=== PATIENT | female | born 1950 | race Caucasian/White ===

== ENCOUNTER 2024-01-13 09:03 | Outpatient (OUT) | payer MEDICARE, SELFPAY ==
[2024-01-13 10:22] LABS: Basophils Absolute Auto 0.1 10^3/uL (0.0-0.1); Eosinophils Absolute Auto 0.1 10^3/uL (0.0-0.7); Eosinophils Percent Auto 1.8 % (0.9-7.0); Hematocrit 41.9 % (36.0-48.0); Hemoglobin 13.5 g/dL (12.0-16.0); Immature Granulocytes Abs Auto 0.02 10^3/uL (0.00-0.03); Immature Granulocytes Pct Auto 0.3 % (0.0-0.5); Lymphocytes Absolute Auto 1.9 10^3/uL (1.2-3.8); Lymphocytes Percent Auto 24.5 % (20.5-60.0); Mean Corpuscular HGB Conc 32.2 g/dL (29.9-35.2); Mean Corpuscular Hemoglobin 30.5 pg (26.7-34.0); Mean Corpuscular Volume 94.6 fL (81.0-99.0); Mean Platelet Volume 12.2 fL (9.5-13.5); Monocytes Absolute Auto 0.7 10^3/uL (0.3-0.8); Monocytes Percent Auto 8.5 % (1.7-12.0); Neutrophils Percent Auto 63.9 % (43.0-75.0); Platelet Count 127 10^3/uL (150-450); Red Blood Count 4.43 10^6/uL (4.20-5.40); Red Cell Distribution Width 13.8 % (11.0-15.0); White Blood Count 7.8 10^3/uL (4.0-11.0)
[2024-01-13 10:56] LABS: Alanine Aminotransferase 19 U/L (14-59); Albumin Globulin Ratio 1.3; Alkaline Phosphatase 89 U/L (46-116); Anion Gap 8.9; Aspartate Amino Transferase 12 U/L (15-37); BUN Creatinine Ratio 26.9; Bilirubin Direct 0.1 mg/dL (0.0-0.2); Bilirubin Total 0.6 mg/dL (0.2-1.0); Calcium 9.7 mg/dL (8.5-10.1); Carbon Dioxide 30.8 mmol/L (21.0-32.0); Chloride 104 mmol/L (98-107); Cholesterol 139 mg/dL (<=200); Estimated GFR (African America >60 (>=60); Estimated GFR (Non-African Ame 52 (>=60); Globulin 3.1 g/dL; Glucose 111 mg/dL (74-106); HDL Cholesterol 47 mg/dL (40-60); LDL Cholesterol Calculated 67.6 mg/dL; Potassium 4.7 mmol/L (3.5-5.1); Sodium 139 mmol/L (136-145); Total Protein 7.1 g/dL (6.4-8.2); Triglycerides 122 mg/dL (<=150); VLDL CHOLESTEROL 24.4 mg/dL
== END 2024-01-13 09:04 | disposition home or self-care (01) ==
LOC: LAB 09:10
PROVIDERS: PCP Family Medicine; Visit Provider Family Medicine
DX: E78.2 Mixed hyperlipidemia (principal); Z79.899 Other long term (current) drug therapy; E55.9 Vitamin D deficiency, unspecified
CPT/HCPCS: 36415; 80048; 80061; 80076; 82306; 85025

== ENCOUNTER 2024-01-14 09:50 | Outpatient (OUT) | payer MEDICARE, SELFPAY ==
--- OUTSIDE RECORDS SUMMARY | 2024-01-14 10:09 | XMS_ITS | CCD ---
Author Organization [facility] Care Team Providers Care Blending Line Attendant Name Role Phone PHYSICIAN, DEFAULT Unavailable Unavailable PHYSICIAN, DEFAULT Unavailable Unavailable SIL BAIG Unavailable Unavailable JESICA QUACH Attending Unavailable JESICA QUACH Consulting Unavailable JESICA QUACH Admitting Unavailable NADERER, DR GABY Paiz Primary Care Unavailable MOUKAGLORIA, DR PASTOR Attending Unavailable MOUKARBEL, DR PASTOR Admitting Unavailable ZIEBER, DR ERIC Gautam Consulting Unavailable NADERER, DR GABY Paiz Primary Care Unavailable MOUKARBEL, DR PASTOR Consulting Unavailable MAINJESICA APARICIO Consulting Unavailable JESICA QUACH Admitting Unavailable REQUEST, DR NONE LISTED Primary Care Unavaila ble JESICA QUACH Attending Unavailable ELLIOT, JAMAR Attending Unavailable MOUKAGLORIA, DARBY Attending Unavailable Allergies Allergy Classification Reported Allergen(s) Allergy Type Date of Onset Reaction(s) Facility (2 sources) Shellfish Containing Products; Translations: [SHELLFISH CONTAINING PRODUCTS] Drug allergy (disorder) 03-25-2013 [facility] Repository Problems Active Problems Problem Classification Problem Date Documented Date Episodic/Chronic Coronary atherosclerosis and other heart disease (7 sources) Atherosclerotic heart disease of [place] coronary artery without angina pectoris; Translations: [Atherosclerotic heart disease of [place] coronary artery with other forms of angina pectoris] Onset: 03-10-2022 Chronic Coronary atherosclerosis and other heart disease (4 sources) Presence of coronary angioplasty implant and graft; Translations: [Presence of aortocoronary bypass graft] Onset: 07-31-2023 Episodic Disorders of lipid metabolism (5 sources) Mixed hyperlipidemia; Translations: [Hyperlipidemia, unspecified] Onset: 07-16-2022 Chronic Essential hypertension (6 sources) Essential (primary) hypertension; Translations: [ESSENTIAL PRIMARY HYPERTENSION] Onset: 02-17-2022 Chronic Peripheral and visceral atherosclerosis (2 sources) Peripheral vascular disease, unspecified; Translations: [Peripheral vascular disease, unspecified] Onset: 07-22-2022 Chronic Past or Other Problems Problem Classification Problem Date Documented Da te Episodic/Chronic Nonspecific chest pain (2 sources) Chest pain, unspecified; Translations: [Chest pain, unspecified] Onset: 07-16-2022 Episodic Results Test Name Value Interpretation Reference Range Facility Office Visiton 07-31-2023 Follow-up visit [id number] RiddleDanica jalloh 1950 F Date Provider Department Center 07/31/2023 DARBY POWER [facility] Family History Problem Relation Age of Onset Coronary artery disease Mother Diabetes Father Family Status - Relation Status Age at Mother Father Level of Service:71776 UT OFFICE/OUTPATIENT ESTABLISHED LOW MDM 20-29 MIN Normal [facility] Office Visiton 01-21-2023 Follow-up visit [id number] RiddleDanica jalloh 1950 F Date Provider Department Center 01/21/2023 JAMAR CHAUDHRY [facility] Family History Problem Relation Age of Onset Coronary artery disease Mother Diabetes Father Family Status - Relation Status Age at Mother Father Level of Service:14235 UT OFFICE/OUTPATIENT ESTABLISHED MOD MDM 30-39 MIN Normal [facility] CBC AUTO DIFFon 07-23-2022 BASO # 0.1 103/ul Normal 0.0-0.1 [facility] Comment on above: Performed By: #### C BC #### [facility] [address] [place] [address] Dr. Geeta Ferrer Basophils/100 WBC (Bld) 1.0 % Normal 0.2-2.0 [facility] Comment on above: Performed By: #### C BC #### [facility] [address] [address] [address] Geeta Ferrer EO # 0.2 103/ul Normal 0.0-0.7 [facility] Comment on above: Performed By: #### C BC #### [facility] [address] [place] [address] Dr. Geeta Ferrer Eosinophils/100 WBC (Bld) 2.2 % Normal 0.9-7.0 [facility] Comment on above: Performed By: #### C BC #### [facility] [address] [place] [address] Dr. Geeta Ferrer Erythrocyte distribution width (RBC) [Ratio] 14.0 % Normal 11.0-15.0 [facility] Comment on above: Performed By: #### C BC #### [facility] [address] [place] [address] Dr. Geeta Ferrer Hematocrit (Bld) [Volume fraction] 42.8 % Normal 36.0-48.0 [facility] Comment on above: Performed By: #### C BC #### [facility] [address] [place] [address] Dr. Geeta Ferrer Hemoglobin (Bld) [Mass/Vol] 13.8 g/dL Normal 12.0-16.0 [facility] Comment on above: Performed By: #### C BC #### [facility] [address] [place] [address] Dr. Geeta Ferrer IG # 0.03 10e3/ul Normal 0.00-0.03 [facility] Comment on above: Performed By: #### C BC #### [facility] [address] [place] [address] Dr. Geeta Ferrer IG % 0.4 % Normal 0.0-0.5 [facility] Comment on above: Performed By: #### C BC #### [facility] [address] [place] [address] Dr. Geeta Ferrer LYMPH # 1.8 103/ul Normal 1.2-3.8 [facility] Comment on above: Performed By: #### C BC #### [facility] [address] [place] [address] Dr. Geeta Ferrer Lymphocytes/100 WBC (Bld) 24.7 % Normal 20.5-60.0 [facility] Comment on above: Performed By: #### C BC #### [facility] [address] [place] [address] Dr. Geeta Ferrer MANUAL DIFF REQ NO Normal [facility] Comment on above: Performed By: #### C BC #### [facility] [address] [place] [address] Dr. Geeta Ferrer MCH (RBC) [Entitic mass] 30.1 pg Normal 26.7-34.0 [facility] Comment on above: Performed By: #### C BC #### [facility] [address] [place] [address] Dr. Geeta Ferrer MCHC (RBC) [Mass/Vol] 32.2 g/dL Normal 29.9-35.2 [facility] Comment on above: Performed By: #### C BC #### [facility] [address] [place] [address] Dr. Geeta Ferrer MCV (RBC) [Entitic vol] 93.2 fL Normal 81.0-99.0 [facility] Comment on above: Performed By: #### C BC #### [facility] [address] [place] [address] Dr. Geeta Ferrer MONO # 0.6 103/ul Normal 0.3-0.8 [facility] Comment on above: Performed By: #### C BC #### [facility] [address] [place] [address] Dr. Geeta Ferrer Monocytes/100 WBC (Bld) 8.5 % Normal 1.7-12.0 [facility] Comment on above: Performed By: #### C BC #### [facility] [address] [place] [address] Dr. Geeta Ferrer NEUT # 4.6 103/ul Normal 1.4-6.5 [facility] Comment on above: Performed By: #### C BC #### [facility] [address] [place] [address] Dr. Geeta Ferrer Neutrophils/100 WBC (Bld) 63.2 % Normal 43.0-75.0 [facility] Comment on above: Performed By: #### C BC #### [facility] [address] [place] [address] Dr. Geeta Ferrer Platelet mean volume (Bld) [Entitic vol] 12.0 fL Normal 9.5-13.5 [facility] Comment on above: Performed By: #### C BC #### [facility] [address] [address] [address] Geeta Ferrer PLT 132 103/ul Critically low 150-450 [facility] Comment on above: Performed By: #### C BC #### [facility] [address] [address] [address] Geeta Ferrer RBC 4.59 106/ul Normal 4.20-5.40 [facility] Comment on above: Performed By: #### C BC #### [facility] [address] [place] [address] Dr. Geeta Ferrer WBC 7.3 103/ul Normal 4.0-11.0 [facility] Comment on above: Performed By: #### C BC #### [facility] [address] [place] [address] Dr. Geeta Ferrer LIPID PROFILEon 07-23-2022 CHOL-HDL RATIO NORM SEE BELOW Normal [facility] Comment on above: Result Comment: 3.3 - 4.4 LOW RISK 4.4 - 7.1 AVERAGE RISK 7.1 - 11.0 MODERATE RISK >11.0 HIGH RISK Performed By: #### T SH, CMP, LIPID #### [facility] [address] [place] [address] Dr. Geeta Ferrer Cholesterol [Mass/Vol] 137 mg/dL Normal <=200 [facility] Comment on above: Performed By: #### T SH, CMP, LIPID #### [facility] [address] [place] [address] Dr. Geeta Ferrer Cholesterol in HDL [Mass/Vol] 50 mg/dL Normal 40-60 [facility] Comment on above: Performed By: #### T SH, CMP, LIPID #### [facility] [address] [place] [address] Dr. Geeta Ferrer Cholesterol in LDL [Mass/Vol] 67.6 mg/dL Normal [facility] Comment on above: Performed By: #### T SH, CMP, LIPID #### [facility] [address] [place] [address] Dr. Geeta Ferrer Cholesterol.total/ Cholesterol in HDL [Mass ratio] 2.7 {ratio} Normal [facility] Comment on above: Performed By: #### T SH, CMP, LIPID #### [facility] [address] [address] [address] Geeta Ferrer HDL NORMAL > or = 60 mg/dl - LO W CARDIOVASCULAR RISK <40 mg/dl - HIGH CARDIOVASCULAR RISK Normal [facility] Comment on above: Performed By: #### T SH, CMP, LIPID #### [facility] [address] [address] [address] Geeta Ferrer LDL CALC NORMAL SEE BELOW Normal [facility] Comment on above: Result Comment: <100 mg/dl OPTIMAL 100 - 129 mg/dl NEAR OR ABOVE OPTIMAL 130 - 159 mg/dl BORDERLINE HIGH 160 - 189 mg/dl HIGH >190 mg/dl VERY HIGH Performed By: #### T SH, CMP, LIPID #### [facility] [address] [address] [address] Geeta Ferrer Triglyceride [Mass/Vol] 97 mg/dL Normal <=150 [facility] Comment on above: Performed By: #### T SH, CMP, LIPID #### [facility] [address] [address] [address] Geeta Ferrer VLDL CALC 19.4 mg/dL Normal [facility] Comment on above: Performed By: #### T SH, CMP, LIPID #### [facility] [address] [address] [address] Geeta Ferrer PROF 14(COMP METB)on 022 Albumin [Mass/Vol] 4.1 g/dL Normal 3.4-5.0 [facility] Comment on above: Performed By: #### T SH, CMP, LIPID #### [facility] [address] [address] [address] Geeta Ferrer Albumin/Globulin [Mass ratio] 1.3 {ratio} Normal [facility] Comment on above: Performed By: #### T SH, CMP, LIPID #### [facility] [address] [address] [address] Geeta eFrrer ALP [Catalytic activity/Vol] 76 U/L Normal 46-116 [facility] Comment on above: Performed By: #### T SH, CMP, LIPID #### [facility] [address] [address] [address] Geeta Ferrer ALT [Catalytic activity/Vol] 19 U/L Normal 14-59 [facility] Comment on above: Performed By: #### T SH, CMP, LIPID #### [facility] [address] [address] [address] Geeta Ferrer Anion gap [Moles/Vol] 14.5 mmol/L Normal [facility] Comment on above: Performed By: #### T SH, CMP, LIPID #### [facility] [address] [address] [address] Geeta Ferrer AST [Catalytic activity/Vol] 14 U/L Critically low 15-37 [facility] Comment on above: Performed By: #### T SH, CMP, LIPID #### [facility] [address] [place] [address] Dr. Geeta Ferrer Bilirubin [Mass/Vol] 0.4 mg/dL Normal 0.2-1.0 [facility] Comment on above: Performed By: #### T SH, CMP, LIPID #### [facility] [address] [address] [address] Geeta Ferrer Calcium [Mass/Vol] 9.5 mg/dL Normal 8.5-10.1 [facility] Comment on above: Performed By: #### T SH, CMP, LIPID #### [facility] [address] [address] [address] Geeta Ferrer Chloride [Moles/Vol] 105 mmol/L Normal 98-107 [facility] Comment on above: Performed By: #### T SH, CMP, LIPID #### [facility] [address] [address] [address] Geeta Ferrer CO2 [Moles/Vol] 25.9 mmol/L Normal 21.0-32.0 [facility] Comment on above: Performed By: #### T SH, CMP, LIPID #### [facility] [address] [address] [address] Geeta Ferrer Creatinine [Mass/Vol] 0.91 mg/dL Normal 0.55-1.02 [facility] Comment on above: Performed By: #### T SH, CMP, LIPID #### [facility] [address] [address] [address] Geeta Ferrer EGFR-AF SRI LANKAN >60 Normal >=60 [facility] Comment on above: Performed By: #### T SH, CMP, LIPID #### [facility] [address] [address] [address] Geeta Ferrer EGFR-NON AF SRI LANKAN >60 Normal >=60 [facility] Comment on above: Performed By: #### T SH, CMP, LIPID #### [facility] [address] [address] [address] Geeta Ferrer Globulin (S) [Mass/Vol] 3.1 g/dL Normal [facility] Comment on above: Performed By: #### T SH, CMP, LIPID #### [facility] [address] [address] [address] Geeta Ferrer Glucose [Mass/Vol] 113 mg/dL Critically high 74-106 [facility] Comment on above: Performed By: #### T SH, CMP, LIPID #### [facility] [address] [address] [address] Getea Ferrer Potassium [Moles/Vol] 4.4 mmol/L Normal 3.5-5.1 [facility] Comment on above: Performed By: #### T SH, CMP, LIPID #### [facility] [address] [address] [address] Geeta Ferrer Protein [Mass/Vol] 7.2 g/dL Normal 6.4-8.2 [facility] Comment on above: Performed By: #### T SH, CMP, LIPID #### [facility] [address] [address] [address] Geeta Ferrer Sodium [Moles/Vol] 141 mmol/L Normal 136-145 [facility] Comment on above: Performed By: #### T SH, CMP, LIPID #### [facility] [address] [address] [address] Geeta Ferrer Urea nitrogen [Mass/Vol] 14.0 mg/dL Normal 7.0-18.0 [facility] Comment on above: Performed By: #### T SH, CMP, LIPID #### [facility] [address] [address] [address] Geeta Ferrer Urea nitrogen/Creatinin e [Mass ratio] 15.4 mg/mg Normal [facility] Comment on above: Performed By: #### T SH, CMP, LIPID #### [facility] [address] [address] [address] Geeta Ferrer TSHon 07-23-2022 TSH 2.938 uIU/mL Normal 0.358-3.740 [facility] Comment on above: Performed By: #### T SH, CMP, LIPID #### [facility] [address] [address] [address] Geeta Ferrer NM STRESS/REST MULTIon 03-10 NM STRESS/REST MULTI Patient: TRESSA RIDDLE Exam Date: 03/10/2022 : 1950 Gender:F Ordering : DR DARBY STRAUSS M.D. Admission #: [id number] Family : Order #: [id number] CLICK HERE TO VIEW EXAM RADIOLOGY REPORT PROCEDURE: RADIONUCLIDE IMAGING STRESS/REST MULTI COMPARISON: None. INDICATIONS: Angina co-occurrent and due to coronary arteriosclerosis TECHNIQUE: Exam Description: Stress/Rest one day protocol gated SPECT Rest Imagin.8 mCi Tc-99m Cardiolite IV on 03/10/2022 Stress Imaging 30.8 mCi Tc-99m Cardiolite IV on 03/10/2022 Exercise Protocol: 0.4 mg Lexiscan given IV Heart Rate (bpm): Rest: 51 Max: 75 PMHR: 50 Blood Pressure: Rest: 166/78 Max: 212/96 Symptoms: Rest and peak stress ECG findings were normal and the exercise portion of the study was normal per attending physician Dr. Strauss . For more details please see separate cardiac stress test report. FINDINGS: QUALITY OF STUDY: Excellent. PERFUSION DEFECT: None. LOCATION: N/A SIZE: N/A. SEVERITY: N/A. TYPE: N/A. WALL MOTION: Normal. LV SIZE: Normal. 71 mL. TID / TCD: None; 0.8 LVEF: Normal. Calculated EF 71%. SUMMARY: Myocardial perfusion imaging study is NORMAL. CONCLUSION: 1. Normal nuclear medicine myocardial perfusion scan. Dictated by: Eric Arriaza M.D. on 03/10/2022 at 13:48 Approved by: Eric Arriaza M.D. on 03/10/2022 at 13:49 Normal [facility] PROF CHEM 8 (BAS METB)on Anion gap [Moles/Vol] 8.8 mmol/L Normal [facility] Comment on above: Performed By: #### B MP #### [facility] [address] [address] [address] Geeta Ferrer Calcium [Mass/Vol] 9.7 mg/dL Normal 8.5-10.1 [facility] Comment on above: Performed By: #### B MP #### [facility] [address] [address] [address] Geeta Ferrer Chloride [Moles/Vol] 107 mmol/L Normal 98-107 [facility] Comment on above: Performed By: #### B MP #### [facility] [address] [address] [address] Geeta Ferrer CO2 [Moles/Vol] 29.0 mmol/L Normal 21.0-32.0 [facility] Comment on above: Performed By: #### B MP #### [facility] [address] [address] [address] Geeta Ferrer Creatinine [Mass/Vol] 0.99 mg/dL Normal 0.55-1.02 [facility] Comment on above: Performed By: #### B MP #### [facility] [address] [address] [address] Geeta Ferrer EGFR-AF SRI LANKAN >=60 Normal >=60 [facility] Comment on above: Performed By: #### B MP #### [facility] [address] [address] [address] Geeta Ferrer EGFR-NON AF SRI LANKAN 55 mL/min/1.73m2 Critically low >=60 [facility] Comment on above: Performed By: #### B MP #### [facility] [address] [address] [address] Geeta Ferrer Glucose [Mass/Vol] 100 mg/dL Normal 74-106 [facility] Comment on above: Performed By: #### B MP #### [facility] [address] [address] [address] Geeta Ferrer Potassium [Moles/Vol] 4.8 mmol/L Normal 3.5-5.1 [facility] Comment on above: Performed By: #### B MP #### [facility] [address] [address] [address] Geeta Ferrer Sodium [Moles/Vol] 140 mmol/L Normal 136-145 [facility] Comment on above: Performed By: #### B MP #### [facility] [address] [address] [address] Geeta Ferrer Urea nitrogen [Mass/Vol] 19.0 mg/dL Critically high 7.0-18.0 [facility] Comment on above: Performed By: #### B MP #### [facility] [address] [address] [address] Geeta Ferrer Urea nitrogen/Creatinin e [Mass ratio] 19.2 mg/mg Normal [facility] Comment on above: Performed By: #### B MP #### [facility] [address] [address] [address] Geeta Ferrer Encounters Encounter Date Encounter Type Care Provider Facility Start: 07-31-2023 End: 07-31-2023 ambulatory DARBY STRAUSS [facility] Start: 01-21-2023 End: 01-21-2023 ambulatory JAMAR ZARATE [facility] Start: 07-26-2022 Encounter for genera l adult medical examination without abnormal findings JESICA QUACH [facility] Start: 07-23-2022 End: 07-24-2022 ambulatory JESICA QUACH Facility:[facility] Start: 07-23-2022 End: 07-24-2022 Encounter for general adult medical examination without abnormal findings JESICA QUACH Facility:[facility] Start: 03-10-2022 End: 03-11-[address] DARBY STRAUSS Facility:[facility] Start: 02-17-2022 End: 02-18-2022 ambulatory JESICA QUACH Facility:[facility] Start: 07-06-2018 End: 07-07-2018 Patient encounter procedure DEFAULT PHYSICIAN Facility:[facility] Payers Date Payer Category Payer Private Health Insurance CLI [id number] 1959 Medicare [id number] 1959 Unknown [id number] 1950 Unknown [id number] 1950 Unknown [id number] 1950 Unknown [id number] [id number] 1950 Unknown [id number] [id number] Unknown Progress note 07-31-2023 Note Date & Type Note Facility 07-31-2023 Note [facility] Subjective Tressa Riddle is a 73 y.o. year old female patient being seen for 6 mo follow up CAD, PAD, and hypertension. No lab work since last visit in December 2022. She denies chest pain, SOB, and palpitations. Doing very well. Patient Active Problem List Diagnosis Acute ill-defined cerebrovascular disease Palpitations Ischemic heart disease Essential hypertension Hyperlipidemia Dyspnea Coronary atherosclerosis Chronic obstructive lung disease ([facility]) Chest pain PAD (peripheral artery disease) ([facility]) Family History Problem Relation Name Age of Onset Coronary artery disease Mother Diabetes Father Social History Tobacco Use Smoking status: Every Day Packs/day: 1 Types: Cigarettes Smokeless tobacco: Never Substance Use Topics Alcohol use: Not Currently HPI Tressa is seen in follow up. She is a 73-year-old lady with history of CAD with NSTEMI s/p CABG in 2012. She is s/p stenting of the LAD and Cx in 11/2016. She has hypertension on treatment. She has peripheral vascular disease: ABIs 04/21/2017: R 1.04; L 0.79. I started her on pletal therapy but that did not help. I performed lower extremity angiogram on 06/15/2017 and this showed: 1. Mild atherosclerotic disease in the distal abdominal aorta. 2. 50% stenosis in the left renal artery. 3. Mild disease in both external iliac arteries. 4. Functionally occluded anterior tibial arteries bilaterally. 5. Patent profunda, superficial femoral, popliteal, peroneal, and posterior tibial arteries bilaterally. 6. Of note, is that the previously seen stenosis at the ostium of the right superficial femoral artery at prior angiography is no longer seen indicating a spasm component to her presentation. Today she is seen in follow-up. She reports that she has been doing very well. She denies symptoms of chest pain, shortness of breath, claudication and palpitation. She has no leg swelling. No syncope Review of Systems Cardiovascular: Negative for chest pain, dyspnea on exertion, irregular heartbeat, leg swelling, orthopnea, palpitations and syncope. Respiratory: Negative for cough and shortness of breath. Musculoskeletal: Negative for arthritis, falls and neck pain. Gastrointestinal: Negative for diarrhea and dysphagia. Neurological: Negative for light-headedness and loss of balance. Objective Visit Vitals BP 110/62 (BP Location: Left arm, Patient Position: Sitting) Pulse 60 Ht 1.6 m (5' 3 ) Wt 61.7 kg (136 lb) SpO2 96% BMI 24.09 kg/m??? Smoking Status Every Day BSA 1.66 m??? Physical Exam Constitutional: Appearance: She is well-developed. She is not ill-appearing. HENT: Head: Normocephalic and atraumatic. Nose: Nose normal. Eyes: General: No scleral icterus. Pupils: Pupils are equal, round, and reactive to light. Neck: Thyroid: No thyromegaly. Vascular: No JVD. Cardiovascular: Rate and Rhythm: Normal rate and regular rhythm. Pulses: Radial pulses are 2+ on the right side and 2+ on the left side. Heart sounds: Normal heart sounds. No murmur heard. No friction rub. No gallop. Pulmonary: Effort: Pulmonary effort is normal. No respiratory distress. Breath sounds: Normal breath sounds. No wheezing or rales. Chest: Chest wall: No tenderness. Abdominal: General: Bowel sounds are normal. There is no distension. Palpations: Abdomen is soft. Tenderness: There is no abdominal tenderness. Musculoskeletal: General: No swelling. Cervical back: Neck supple. Skin: General: Skin is warm and dry. Neurological: General: No focal deficit present. Mental Status: She is alert and oriented to person, place, and time. Psychiatric: Mood and Affect: Mood normal. Behavior: Behavior is cooperative. Judgment: Judgment normal. Allergies Allergies Allergen Reactions Shellfish Containing Products GI intolerance Ingesting shrimp, can have iodine on skin Medications Current Outpatient Medications: amLODIPine (Norvasc) 5 mg tablet, Take 1 tablet (5 mg) by mouth in the morning., Disp: 90 tablet, Rfl: 3 aspirin 81 mg chewable tablet, Chew 2 tablets in the morning., Disp: , Rfl: atorvastatin (Lipitor) 80 mg tablet, Take 1 tablet (80 mg) by mouth at bedtime., Disp: 90 tablet, Rfl: 3 isosorbide mononitrate ER (Imdur) 120 mg 24 hr tablet, Take 1 tablet (120 mg) by mouth in the morning., Disp: 90 tablet, Rfl: 3 lisinopril 40 mg tablet, Take 1 tablet (40 mg) by mouth in the morning., Disp: 90 tablet, Rfl: 3 metoprolol tartrate (Lopressor) 50 mg tablet, TAKE 1 TABLET BY MOUTH TWICE DAILY, Disp: 180 tablet, Rfl: 3 Recent Labs No visits with results within 6 Month(s) from this visit. Latest known visit with results is: [facility] Encounter on 11/28/2016 Component Date Value Ventricular Rate 11/28/2016 51 Atrial Rate 11/28/2016 51 UT Interval 11/28/2016 170 QRS DURATION 11/28/2016 100 QT Interval 11/28/2016 486 QTC CALCULA (more content not included)... [facility] Progress note 01-21-2023 Note Date & Type Note Facility 01-21-2023 Note Stable without any w orsening symptoms, continue ASA, plavix and lipitor [facility] Progress note 01-21-2023 Note Date & Type Note Facility 01-21-2023 Note Hypertension is well controlled 122/73 Continue amlodipine, lisinopril, metoprolol, & imdur [facility] Progress note 01-21-2023 Note Date & Type Note Facility 01-21-2023 Note Coronary artery dise ase is stable Continue GDMT- ASA, lipitor, metoprolol and lisinopril continue risk factor modifications- heart healthy diet, regular exercise as tolerated and continue all medications. [facility] Progress note 01-21-2023 Note Date & Type Note Facility 01-21-2023 Note [facility] ESS NOTE HPI: Tressa Riddle is a 72 y.o. female here for routine f/U CAD, HTN, HPL, PAD, Tobacco dependence Denied chest pain, shortness of breath, orthopnea or palpitations. States claudication with walking remains unchanged and denied any ulceration/sores of BLE. Overall states she is doing well. Continues to smoke and states she is unable to quit after multiple attempts and is not going to try again. Review of Systems Constitutional: Negative. Respiratory: Negative. Cardiovascular: Negative. Musculoskeletal: + claudication Neurological: Negative. All other systems reviewed and are negative. Previous HPI per Dr Strauss- She is a 71-year-old lady with history of CAD with NSTEMI s/p CABG in 2012. She is s/p stenting of the LAD and Cx in 11/2016. She has hypertension on treatment. She has peripheral vascular disease: ABIs 04/21/2017: R 1.04; L 0.79. I started her on pletal therapy but that did not help. I performed lower extremity angiogram on 06/15/2017 and this showed: 1. Mild atherosclerotic disease in the distal abdominal aorta. 2. 50% stenosis in the left renal artery. 3. Mild disease in both external iliac arteries. 4. Functionally occluded anterior tibial arteries bilaterally. 5. Patent profunda, superficial femoral, popliteal, peroneal, and posterior tibial arteries bilaterally. 6. Of note, is that the previously seen stenosis at the ostium of the right superficial femoral artery at prior angiography is no longer seen indicating a spasm component to her presentation. Today she is seen in follow-up. She reports that she has been having symptoms of chest pain located to the left side of the chest and radiating to the arm and sometimes to the jaw. Those happen and it rest in the evening. No chest pain with exertion. No significant shortness of breath. No claudication. Recent testing: ABIs 01/17/2021: Right 0.97, left 0.83. ECG 01/07/2021: Sinus rhythm nonspecific ST changes. BMP 01/14/2021: Potassium 4.4, BUN 14, creatinine 0.79. BMP 02/17/2022: Potassium 4.8, BUN 19, creatinine 0.99. Past testing: Stress test 07/06/2018: Normal myocardial perfusion. No ischemia. Normal LV systolic function. No TID. EF 74%. Cath result 11/28/2016: 1. Severe 3-vessel coronary artery disease. 2. Patent 3/3 bypass grafts. 3. A 90% proximal LAD stenosis reduced to 0% by balloon angioplasty and drug-eluting stenting. 4. A 90% mid circumflex stenosis reduced to 0% by balloon angioplasty and drug-eluting stenting. Past history: In March 2013 was admitted to the [facility] with a non-ST segment elevation myocardial infarction and was diagnosed to have severe three vessel disease. She ultimately underwent bypass surgery with GARRETT to LAD, saphenous vein graft to the PDA, and saphenous vein graft to the obtuse marginal branch. Her echocardiogram initially showed evidence of mild left ventricular dysfunction with an ejection fraction of 40 to 45%. On some views there was evidence of a possible thrombus in the left ventricle, which was not confirmed on intraoperative transesophageal study. Her postop course was rather uneventful except for an episode of atrial fibrillation for which she was placed on Amiodarone and reverted to sinus rhythm. This was later stopped in clinic in April 2013. Of note, her ABIs in 05/2013 were normal. Her Holter monitor in 12/2013 did not show any significant arrhythmias. Visit Vitals BP 122/73 (BP Location: Right arm, Patient Position: Sitting) Pulse 58 Ht 1.575 m (5' 2 ) Wt 63.5 kg (140 lb) SpO2 99% BMI 25.61 kg/m??? Smoking Status Every Day BSA 1.67 m??? Allergies Allergen Reactions Shellfish Containing Products GI intolerance Ingesting shrimp, can have iodine on skin Medications: Current Outpatient Medications on File Prior to Visit Medication Sig Dispense Refill amLODIPine (Norvasc) 5 mg tablet Take 1 tablet (5 mg) by mouth in the morning. 90 tablet 3 aspirin 81 mg chewable tablet Chew 1 tablet in the morning. lisinopril 40 mg tablet Take 1 tablet (40 mg) by mouth in the morning. 90 tablet 3 metoprolol tartrate (Lopressor) 50 mg tablet TAKE 1 TABLET BY MOUTH TWICE DAILY 180 tablet 3 [DISCONTINUED] atorvastatin (Lipitor) 80 mg tablet Take 1 tablet (80 mg) by mouth at bedtime. 90 tablet 3 [DISCONTINUED] isosorbide mononitrate ER (Imdur) 120 mg 24 hr tablet Take 1 tablet (120 mg) by mouth in the morning. 90 tablet 3 No current facility-administered medications on file prior to visit. Physical Exam: Constitutional: Appearance: Normal appearance. Without apparent distress HENT: Head: Normocephalic and atraumatic. Nose: Nose normal. Mouth/Throat: Mouth: Mucous membranes are moist. Eyes: Extraocular Movements: Extraocular movements intact. Conjunctiva/sclera: Conjunctivae normal. Neck: Vascular: No JVD. Cardiovascular: Rate and Rhythm: Normal rate a (more content not included)... [facility] Progress note 01-21-2023 Note Date & Type Note Facility 01-21-2023 Note Patient here for 6 m o follow up CAD, hypertension, and hyperlipidemia. Had labs in Jun 2022 after last apt. Denies chest pain and SOB. Stills smokes about 1 PPD, sometimes less. Review of Systems Respiratory: Positive for cough. Musculoskeletal: Positive for back pain. All other systems reviewed and are negative. [facility] Clinical Note 03-10-2022 Note Date & Type Note Facility 03-10-2022 Note CARDIAC STRESS TEST Requesting Physician: Procedure Date:03/10/2022 Lexiscan Stress Test with myocardial perfusion imaging performed at the [facility]. Informed consent was obtained. An intravenous line was secured. The patient was attached to electrocardiographic monitoring. Lexiscan 0.4 mg was infused slowly, followed by administration of Cardiolite. The patient then went on to obtain myocardial perfusion imaging. Resting heart rate was 51 BPM and maximum heart rate was 75 BPM. Resting blood pressure was 166/78 and maximum blood pressure was 212/96. Baseline ECG showed sinus rhythm with non-specific ST segment depression (less than 1 mm) in the inferolateral leads. There is evidence of possible incomplete right bundle branch block. Following infusion of Lexiscan, the ECG demonstrated sinus rhythm with no new ST segment changes. Final ECG is comparable to baseline. SUMMARY OF THE FINDINGS: 1. No evidence of ischemia by ECG criteria following infusion of Lexiscan. 2. Resting hypertension with hypertensive response to infusion of Lexiscan. 3. Myocardial perfusion images will be reported separately. [facility] Signed and Approved by: DR DARBY STRAUSS 03/24/2022 17:31:00 [facility] Summary Purpose Family History No Family History Records FoundNo Family History Records FoundNo Family History Records Found Advance Directives No Advanced Directives Records FoundNo Advanced Directives Records FoundNo Advanced Directives Records Found Additional Source Comments INFORMATION SOURCE (unrecogn ized section and content) DATE CREATED AUTHOR 08/02/2018 [facility] DATE CREATED AUTHOR AUTHOR'S ORGANIZ ATION 07/26/2022 [facility] DATE CREATED AUTHOR AUTHOR'S ORGANIZ ATION 08/02/2023 [facility] FOR RECORDS PERTAINING TO PATIENTS WHO ARE OR HAVE BEEN ENROLLED IN A CHEMICAL DEPENDENCY/SUBSTANCEABUSE PROGRAM, SOME INFORMATION MAY BE OMITTED. This clinical summary was aggregated from multiple sources. Caution should be exercised in using it in the provision of clinical care. This summary normalizes information from multiple sources, and as a consequence, information in this document may materially change the coding, format and clinical context of patient data. In addition, data may be omitted in some cases. CLINICAL DECISIONS SHOULD BE BASED ON THE PRIMARY CLINICAL RECORDS. [facility]. provides no warranty or guarantee of the accuracy or completeness of information in this document.
[2024-01-14 10:35] LABS: Basophils Absolute Auto 0.1 10^3/uL (0.0-0.1); Basophils Percent Auto 0.9 % (0.2-2.0); Eosinophils Absolute Auto 0.2 10^3/uL (0.0-0.7); Eosinophils Percent Auto 2.7 % (0.9-7.0); Hematocrit 40.5 % (36.0-48.0); Immature Granulocytes Abs Auto 0.02 10^3/uL (0.00-0.03); Immature Granulocytes Pct Auto 0.3 % (0.0-0.5); Lymphocytes Absolute Auto 1.8 10^3/uL (1.2-3.8); Lymphocytes Percent Auto 26.6 % (20.5-60.0); Mean Corpuscular HGB Conc 32.1 g/dL (29.9-35.2); Mean Corpuscular Hemoglobin 30.2 pg (26.7-34.0); Mean Corpuscular Volume 94.2 fL (81.0-99.0); Monocytes Absolute Auto 0.6 10^3/uL (0.3-0.8); Monocytes Percent Auto 8.6 % (1.7-12.0); Neutrophils Percent Auto 60.9 % (43.0-75.0); Platelet Count 119 10^3/uL (150-450); Red Cell Distribution Width 13.9 % (11.0-15.0); White Blood Count 6.6 10^3/uL (4.0-11.0)
[2024-01-14 11:06] LABS: Alanine Aminotransferase 22 U/L (14-59); Albumin Globulin Ratio 1.2; Albumin Level 3.6 g/dL (3.4-5.0); Alkaline Phosphatase 87 U/L (46-116); Anion Gap 12.3; Aspartate Amino Transferase 15 U/L (15-37); BUN Creatinine Ratio 24.3; Bilirubin Total 0.6 mg/dL (0.2-1.0); Calcium 9.7 mg/dL (8.5-10.1); Carbon Dioxide 28.2 mmol/L (21.0-32.0); Chloride 106 mmol/L (98-107); Chol HDL Ratio 2.8; Cholesterol 134 mg/dL (<=200); Estimated GFR (African America >60 (>=60); Estimated GFR (Non-African Ame 53 (>=60); Globulin 3.1 g/dL; Glucose 112 mg/dL (74-106); HDL Cholesterol 48 mg/dL (40-60); LDL Cholesterol Calculated 69.8 mg/dL; Potassium 4.5 mmol/L (3.5-5.1); Sodium 142 mmol/L (136-145); Total Protein 6.7 g/dL (6.4-8.2); Triglycerides 81 mg/dL (<=150); VLDL CHOLESTEROL 16.2 mg/dL
== END 2024-01-14 09:51 | disposition home or self-care (01) ==
LOC: LAB 09:51
PROVIDERS: PCP Family Medicine; Visit Provider Internal Medicine Interventional Cardiology
DX: I25.10 Atherosclerotic heart disease of native coronary artery without angina pectoris (principal); E78.2 Mixed hyperlipidemia; I10 Essential (primary) hypertension
CPT/HCPCS: 36415; 80053; 80061; 85025

== ENCOUNTER 2024-01-28 12:48 | Outpatient (OUT) | payer MEDICARE, SELFPAY ==
--- NOTE | 2024-01-28 12:51 | CT_ITS ---
[address] [address] Patient Name: KYLE ALLEN MRN: [id number] date: 1950 Sex: F Assigned Patient Location: CT Current Patient Location: Accession/Order Number: [id number] Exam Date: 01/28/2024 13:02 Report Date: 01/30/2024 06:00 At the request of: GABY VASQUEZ Procedure: CT lung screening low-dose EXAMINATION: CT lung screening low-dose HISTORY: Nicotine dependence with current use F17.200 COMPARISON: No relevant comparison available. TECHNIQUE: Axial, Coronal, and Sagittal images were created without the administration of IV contrast material. Dose reduction techniques were achieved by using automated exposure control and/or adjustment of mA and/or kV according to patient size and/or use of iterative reconstruction technique. FINDINGS: LUNGS: 8 x 3 x 3 mm nodule within right middle lobe. 4 mm nodule within right lower lobe posterior basilar segment. Several 2 and 3 mm subtle opacities scattered within the lungs. No acute infiltrates. PLEURA: No mass, effusion, or pneumothorax. VASCULATURE: No abnormality. SHIRLEY: No mass or pathologic adenopathy. MEDIASTINUM: No mass or pathologic adenopathy. CARDIAC: No enlargement, pericardial thickening, or pericardial effusion. Coronary artery calcifications: Marked. AORTA: No aneurysm or dissection. CHEST WALL: No mass or axillary adenopathy BONES: No bone lesion or fracture. LIMITED ABDOMEN: No suspicious findings. Limited images of the upper abdomen. OTHER: Negative. CT/CT lung screening low-dose IMPRESSION: 1. Lung-RADS Category 3- Probably benign. Probably benign finding(s)- short term follow up suggested; includes nodules with a low likelihood of becoming a clinically active cancer. Six month LDCT. Electronically authenticated by: CHANG ZELAYA Date: 01/30/2024 06:00
== END 2024-01-28 12:49 | disposition home or self-care (01) ==
LOC: CT 12:48
PROVIDERS: PCP Family Medicine; Visit Provider Family Medicine
DX: R91.8 Other nonspecific abnormal finding of lung field (principal); F17.200 Nicotine dependence, unspecified, uncomplicated; F17.210 Nicotine dependence, cigarettes, uncomplicated
CPT/HCPCS: 71271

== ENCOUNTER 2024-03-15 14:41 | Outpatient (OUT) | payer MEDICARE, SELFPAY ==
--- OUTSIDE RECORDS SUMMARY | 2024-03-15 14:56 | XMS_ITS | CCD ---
Author Organization [facility] Care Team Providers Care Photo Print Specialist Name Role Phone PHYSICIAN, DEFAULT Unavailable Unavailable PHYSICIAN, DEFAULT Unavailable Unavailable SIL BAIG Unavailable Unavailable JESICA QUACH Attending Unavailable JESICA QUACH Consulting Unavailable JESICA QUACH Admitting Unavailable NADERER, DR GABY Paiz Primary Care Unavailable MOUKAGLORIA, DR PASTOR Attending Unavailable MOUKARUDYEL, DR PASTOR Admitting Unavailable ZIEBER, DR ERIC Gautam Consulting Unavailable NADERER, DR GABY Paiz Primary Care Unavailable MOUKARUDYEL, DR PASTOR Consulting Unavailable MAINJESICA APARICIO Consulting Unavailable JESICA QUACH Admitting Unavailable REQUEST, DR NONE LISTED Primary Care Unavaila JESICA Echeverria Attending Unavailable MOUKAGLORIA, DARBY Attending Unavailable JAMAR ZARATE Attending Unavailable Allergies Allergy Classification Reported Allergen(s) Allergy Type Date of Onset Reaction(s) Facility (2 sources) Shellfish Containing Products; Translations: [SHELLFISH CONTAINING PRODUCTS] Drug allergy (disorder) 03-25-2013 AOF [facility] Repository Problems Active Problems Problem Classification Problem Date Documented Date Episodic/Chronic Coronary atherosclerosis and other heart disease (7 sources) Atherosclerotic heart disease of [place] coronary artery without angina pectoris; Translations: [Atherosclerotic heart disease of [place] coronary artery with other forms of angina pectoris] Onset: 03-10-2022 Chronic Disorders of lipid metabolism (5 sources) Mixed hyperlipidemia; Translations: [Hyperlipidemia, unspecified] Onset: 07-16-2022 Chronic Essential hypertension (6 sources) Essential (primary) hypertension; Translations: [ESSENTIAL PRIMARY HYPERTENSION] Onset: 02-17-2022 Chronic Peripheral and visceral atherosclerosis (2 sources) Peripheral vascular disease, unspecified; Translations: [Peripheral vascular disease, unspecified] Onset: 07-22-2022 Chronic Past or Other Problems Problem Classification Problem Date Documented Da te Episodic/Chronic Coronary atherosclerosis and other heart disease (4 sources) Presence of coronary angioplasty implant and graft; Translations: [Presence of aortocoronary bypass graft] Onset: 07-31-2023 Episodic Nonspecific chest pain (2 sources) Chest pain, unspecified; Translations: [Chest pain, unspecified] Onset: 07-16-2022 Episodic Results Test Name Value Interpretation Reference Range Facility Orders Onlyon 01-15-2024 Orders Only [id number] Danica Riddle 1950 F Date Provider Department Center 01/15/2024 [id number], HISTORICAL CARD [facility] Family History Problem Relation Age of Onset Coronary artery disease Mother Diabetes Father Family Status - Relation Status Age at Mother Father Normal [facility] Office Visiton 07-31-2023 Follow-up visit [id number] Danica Riddle 1950 Date Provider Department Center 07/31/2023 DARBY POWER MAXIME [facility] Family History Problem Relation Age of Onset Coronary artery disease Mother Diabetes Father Family Status - Relation Status Age at Mother Father Level of Service:94696 MA OFFICE/OUTPATIENT ESTABLISHED LOW MDM 20-29 MIN Normal [facility] Office Visiton 01-21-2023 Follow-up visit [id number] Danica Riddle 1950 Date Provider Department Center 01/21/2023 JAMAR CHAUDHRY [facility] Family History Problem Relation Age of Onset Coronary artery disease Mother Diabetes Father Family Status - Relation Status Age at Mother Father Level of Service:19031 MA OFFICE/OUTPATIENT ESTABLISHED MOD MDM 30-39 MIN Normal [facility] CBC AUTO DIFFon 07-23-2022 BASO # 0.1 103/ul Normal 0.0-0.1 [facility] Comment on above: Performed By: #### C BC #### [facility] [address] [address] [address] Geeta Ferrer Basophils/100 WBC (Bld) 1.0 % Normal 0.2-2.0 [facility] Comment on above: Performed By: #### C BC #### [facility] [address] [address] [address] Geeta Ferrer EO # 0.2 103/ul Normal 0.0-0.7 [facility] Comment on above: Performed By: #### C BC #### [facility] [address] [place] [address] Dr. Geeta Ferrer Eosinophils/100 WBC (Bld) 2.2 % Normal 0.9-7.0 [facility] Comment on above: Performed By: #### C BC #### [facility] [address] [place] [address] Dr. Geeta Ferrer Erythrocyte distribution width (RBC) [Ratio] 14.0 % Normal 11.0-15.0 [facility] Comment on above: Performed By: #### C BC #### [facility] [address] [place] [address] Dr. Geeta Ferrer Hematocrit (Bld) [Volume fraction] 42.8 % Normal 36.0-48.0 [facility] Comment on above: Performed By: #### C BC #### [facility] [address] [place] [address] Dr. Geeta Ferrer Hemoglobin (Bld) [Mass/Vol] 13.8 g/dL Normal 12.0-16.0 [facility] Comment on above: Performed By: #### C BC #### [facility] [address] [place] [address] Dr. Geeta Ferrer IG # 0.03 10e3/ul Normal 0.00-0.03 [facility] Comment on above: Performed By: #### C BC #### [facility] [address] [place] [address] Dr. Geeta Ferrer IG % 0.4 % Normal 0.0-0.5 [facility] Comment on above: Performed By: #### C BC #### [facility] [address] [place] [address] Dr. Geeta Ferrer LYMPH # 1.8 103/ul Normal 1.2-3.8 [facility] Comment on above: Performed By: #### C BC #### [facility] [address] [place] [address] Dr. Geeta Ferrer Lymphocytes/100 WBC (Bld) 24.7 % Normal 20.5-60.0 [facility] Comment on above: Performed By: #### C BC #### [facility] [address] [place] [address] Dr. Geeta Ferrer MANUAL DIFF REQ NO Normal [facility] Comment on above: Performed By: #### C BC #### [facility] [address] [place] [address] Dr. Geeta Ferrer MCH (RBC) [Entitic mass] 30.1 pg Normal 26.7-34.0 [facility] Comment on above: Performed By: #### C BC #### [facility] [address] [place] [address] Dr. Geeta Ferrer MCHC (RBC) [Mass/Vol] 32.2 g/dL Normal 29.9-35.2 [facility] Comment on above: Performed By: #### C BC #### [facility] [address] [place] [address] Dr. Geeta Ferrer MCV (RBC) [Entitic vol] 93.2 fL Normal 81.0-99.0 [facility] Comment on above: Performed By: #### C BC #### [facility] [address] [place] [address] Dr. Geeta Ferrer MONO # 0.6 103/ul Normal 0.3-0.8 [facility] Comment on above: Performed By: #### C BC #### [facility] [address] [place] [address] Dr. Geeta Ferrer Monocytes/100 WBC (Bld) 8.5 % Normal 1.7-12.0 [facility] Comment on above: Performed By: #### C BC #### [facility] [address] [place] [address] Dr. Geeta Ferrer NEUT # 4.6 103/ul Normal 1.4-6.5 [facility] Comment on above: Performed By: #### C BC #### [facility] [address] [place] [address] Dr. Geeta Ferrer Neutrophils/100 WBC (Bld) 63.2 % Normal 43.0-75.0 [facility] Comment on above: Performed By: #### C BC #### [facility] [address] [address] [address] Geeta Ferrer Platelet mean volume (Bld) [Entitic vol] 12.0 fL Normal 9.5-13.5 [facility] Comment on above: Performed By: #### C BC #### [facility] [address] [place] [address] Dr. Geeta Ferrer PLT 132 103/ul Critically low 150-450 [facility] Comment on above: Performed By: #### C BC #### [facility] [address] [place] [address] Dr. Geeta Ferrer RBC 4.59 106/ul Normal 4.20-5.40 [facility] Comment on above: Performed By: #### C BC #### [facility] [address] [place] [address] Dr. Geeta Ferrer WBC 7.3 103/ul Normal 4.0-11.0 [facility] Comment on above: Performed By: #### C BC #### [facility] [address] [place] [address] Dr. Geeta Ferrer LIPID PROFILEon 07-23-2022 CHOL-HDL RATIO NORM SEE BELOW Normal [facility] Comment on above: Result Comment: 3.3 - 4.4 LOW RISK 4.4 - 7.1 AVERAGE RISK 7.1 - 11.0 MODERATE RISK >11.0 HIGH RISK Performed By: #### T SH, CMP, LIPID #### [facility] [address] [place] [address] Dr. Geeta Ferrer Cholesterol [Mass/Vol] 137 mg/dL Normal <=200 [facility] Comment on above: Performed By: #### T SH, CMP, LIPID #### [facility] [address] [place] [address] Dr. Geeta Ferrer Cholesterol in HDL [Mass/Vol] 50 mg/dL Normal 40-60 [facility] Comment on above: Performed By: #### T SH, CMP, LIPID #### [facility] [address] [place] [address] Dr. Geeta Ferrer Cholesterol in LDL [Mass/Vol] 67.6 mg/dL Normal [facility] Comment on above: Performed By: #### T SH, CMP, LIPID #### [facility] [address] [address] [address] Geeta Ferrer Cholesterol.total/ Cholesterol in HDL [Mass ratio] 2.7 {ratio} Normal [facility] Comment on above: Performed By: #### T SH, CMP, LIPID #### [facility] [address] [place] [address] Dr. Geeta Ferrer HDL NORMAL > or = 60 mg/dl - LO W CARDIOVASCULAR RISK <40 mg/dl - HIGH CARDIOVASCULAR RISK Normal [facility] Comment on above: Performed By: #### T SH, CMP, LIPID #### [facility] [address] [place] [address] Dr. Geeta Ferrer LDL CALC NORMAL SEE BELOW Normal [facility] Comment on above: Result Comment: <100 mg/dl OPTIMAL 100 - 129 mg/dl NEAR OR ABOVE OPTIMAL 130 - 159 mg/dl BORDERLINE HIGH 160 - 189 mg/dl HIGH >190 mg/dl VERY HIGH Performed By: #### T SH, CMP, LIPID #### [facility] [address] [place] [address] Dr. Geeta Ferrer Triglyceride [Mass/Vol] 97 mg/dL Normal <=150 [facility] Comment on above: Performed By: #### T SH, CMP, LIPID #### [facility] [address] [place] [address] Dr. Geeta Ferrer VLDL CALC 19.4 mg/dL Normal [facility] Comment on above: Performed By: #### T SH, CMP, LIPID #### [facility] [address] [place] [address] Dr. Geeta Ferrer PROF 14(COMP METB)on 022 Albumin [Mass/Vol] 4.1 g/dL Normal 3.4-5.0 [facility] Comment on above: Performed By: #### T SH, CMP, LIPID #### [facility] [address] [place] [address] Dr. Geeta Ferrer Albumin/Globulin [Mass ratio] 1.3 {ratio} Normal [facility] Comment on above: Performed By: #### T SH, CMP, LIPID #### [facility] [address] [address] [address] Geeta Ferrer ALP [Catalytic activity/Vol] 76 U/L Normal 46-116 [facility] Comment on above: Performed By: #### T SH, CMP, LIPID #### [facility] [address] [address] [address] Geeta Ferrer ALT [Catalytic activity/Vol] 19 U/L Normal 14-59 [facility] Comment on above: Performed By: #### T SH, CMP, LIPID #### [facility] [address] [address] [address] Geeta Ferrer Anion gap [Moles/Vol] 14.5 mmol/L Normal [facility] Comment on above: Performed By: #### T SH, CMP, LIPID #### [facility] [address] [address] [address] Geeta Ferrer AST [Catalytic activity/Vol] 14 U/L Critically low 15-37 [facility] Comment on above: Performed By: #### T SH, CMP, LIPID #### [facility] [address] [address] [address] Geeta Ferrer Bilirubin [Mass/Vol] 0.4 mg/dL Normal 0.2-1.0 [facility] Comment on above: Performed By: #### T SH, CMP, LIPID #### [facility] [address] [address] [address] Geeta Ferrer Calcium [Mass/Vol] 9.5 mg/dL Normal 8.5-10.1 [facility] Comment on above: Performed By: #### T SH, CMP, LIPID #### [facility] [address] [address] [address] Geeta Ferrer Chloride [Moles/Vol] 105 mmol/L Normal 98-107 [facility] Comment on above: Performed By: #### T SH, CMP, LIPID #### [facility] [address] [address] [address] Geeta Ferrer CO2 [Moles/Vol] 25.9 mmol/L Normal 21.0-32.0 [facility] Comment on above: Performed By: #### T SH, CMP, LIPID #### [facility] [address] [place] [address] Dr. Geeta Ferrer Creatinine [Mass/Vol] 0.91 mg/dL Normal 0.55-1.02 [facility] Comment on above: Performed By: #### T SH, CMP, LIPID #### [facility] [address] [place] [address] Dr. Geeta Ferrer EGFR-AF UZBEK >60 Normal >=60 [facility] Comment on above: Performed By: #### T SH, CMP, LIPID #### [facility] [address] [place] [address] Dr. Geeta Ferrer EGFR-NON AF UZBEK >60 Normal >=60 [facility] Comment on above: Performed By: #### T SH, CMP, LIPID #### [facility] [address] [place] [address] Dr. Geeta Ferrer Globulin (S) [Mass/Vol] 3.1 g/dL Normal [facility] Comment on above: Performed By: #### T SH, CMP, LIPID #### [facility] [address] [place] [address] Dr. Geeta Ferrer Glucose [Mass/Vol] 113 mg/dL Critically high 74-106 [facility] Comment on above: Performed By: #### T SH, CMP, LIPID #### [facility] [address] [place] [address] Dr. Geeta Ferrer Potassium [Moles/Vol] 4.4 mmol/L Normal 3.5-5.1 [facility] Comment on above: Performed By: #### T SH, CMP, LIPID #### [facility] [address] [place] [address] Dr. Geeta Ferrer Protein [Mass/Vol] 7.2 g/dL Normal 6.4-8.2 [facility] Comment on above: Performed By: #### T SH, CMP, LIPID #### [facility] [address] [place] [address] Dr. Geeta Ferrer Sodium [Moles/Vol] 141 mmol/L Normal 136-145 [facility] Comment on above: Performed By: #### T MAYANK, CMP, LIPID #### [facility] [address] [place] [address] Dr. Geeta Ferrer Urea nitrogen [Mass/Vol] 14.0 mg/dL Normal 7.0-18.0 [facility] Comment on above: Performed By: #### T MAYANK CMP, LIPID #### [facility] [address] [address] [address] Geeta Ferrer Urea nitrogen/Creatinin e [Mass ratio] 15.4 mg/mg Normal [facility] Comment on above: Performed By: #### T MAYANK CMP, LIPID #### [facility] [address] [place] [address] Dr. Geeta Ferrer TSHon 07-23-2022 TSH 2.938 uIU/mL Normal 0.358-3.740 [facility] Comment on above: Performed By: #### T MAYANK CMP, LIPID #### [facility] [address] [place] [address] Dr. Geeta Ferrer NM STRESS/REST MULTIon 03-10 NM STRESS/REST MULTI Patient: TRESSA RIDDLE Exam Date: 03/10/2022 : 1950 Gender:F Ordering : DR DARBY DOOLEY M.D. Admission #: [id number] Family : Order #: [id number] CLICK HERE TO VIEW EXAM RADIOLOGY REPORT [...] study was normal per attending physician Dr. Dooley . For more details please see separate [...] Arriaza M.D. on 03/10/2022 at 13:49 Normal [facility] PROF CHEM 8 (BAS METB)on Anion gap [Moles/Vol] 8.8 mmol/L Normal [facility] Comment on above: Performed By: #### B MP #### [facility] [address] [address] [address] Geeta Ferrer Calcium [Mass/Vol] 9.7 mg/dL Normal 8.5-10.1 [facility] Comment on above: Performed By: #### B MP #### [facility] [address] [address] [address] Geeta Ferrer Chloride [Moles/Vol] 107 mmol/L Normal 98-107 [facility] Comment on above: Performed By: #### B MP #### [facility] [address] [address] [address] Geeta Ferrer CO2 [Moles/Vol] 29.0 mmol/L Normal 21.0-32.0 [facility] Comment on above: Performed By: #### B MP #### [facility] [address] [address] [address] Geeta Ferrer Creatinine [Mass/Vol] 0.99 mg/dL Normal 0.55-1.02 [facility] Comment on above: Performed By: #### B MP #### [facility] [address] [address] [address] Geeta Ferrer EGFR-AF UZBEK >=60 Normal >=60 [facility] Comment on above: Performed By: #### B MP #### [facility] [address] [address] [address] Geeta Ferrer EGFR-NON AF UZBEK 55 mL/min/1.73m2 Critically low >=60 [facility] Comment on above: Performed By: #### B MP #### [facility] [address] [address] [address] Geeta Ferrer Glucose [Mass/Vol] 100 mg/dL Normal 74-106 [facility] Comment on above: Performed By: #### B MP #### [facility] [address] [address] [address] Geeta Ferrer Potassium [Moles/Vol] 4.8 mmol/L Normal 3.5-5.1 [facility] Comment on above: Performed By: #### B MP #### [facility] [address] [address] [address] Geeta Ferrer Sodium [Moles/Vol] 140 mmol/L Normal 136-145 [facility] Comment on above: Performed By: #### B MP #### [facility] [address] [address] [address] Geeta Ferrer Urea nitrogen [Mass/Vol] 19.0 mg/dL Critically high 7.0-18.0 [facility] Comment on above: Performed By: #### B MP #### [facility] [address] [address] [address] Geeta Ferrer Urea nitrogen/Creatinin e [Mass ratio] 19.2 mg/mg Normal [facility] Comment on above: Performed By: #### B MP #### [facility] [address] [address] [address] Geeta Ferrer Encounters Encounter Date Encounter Type Care Provider Facility Start: 07-31-2023 End: [facility]: 01-21-2023 End: 01-21-2023 ambulatory JAMAR ELLIOT [facility] Start: 07-26-2022 Encounter for genera l adult medical examination without abnormal findings JESICA QUACH [facility] Start: 07-23-2022 End: 07-24-2022 ambulatory JESICA QUACH Facility:[facility] Start: 07-23-2022 End: 07-24-2022 Encounter for general adult medical examination without abnormal findings JESICA QUACH Facility:[facility] Start: 03-10-2022 End: 03-11-[address] DARBY DOOLEY Facility:[facility] Start: 02-17-2022 End: 02-18-2022 ambulatory JESICA QUACH Facility:[facility] Start: 07-06-2018 End: 07-07-2018 Patient encounter procedure DEFAULT PHYSICIAN Facility:[facility] Payers Date Payer Category Payer Private Health Insurance CLI [id number] 1959 Medicare [id number] 1959 Unknown [id number] 1950 Unknown [id number] 1950 Unknown [id number] [id number] 1950 Unknown [id number] [id number] 1950 Unknown [id number] [id number] Unknown Progress note 07-31-2023 Note Date & Type Note Facility 07-31-2023 Note [place] [facility] - [facility] Subjective Tressa Riddle is a 73 [...] Dyspnea Coronary atherosclerosis Chronic obstructive lung disease (CMS/HCC) Chest pain PAD (peripheral artery disease) (CMS/HCC) Family History Problem Relation Name Age of Onset Coronary artery disease Mother Diabetes Father Social History Tobacco Use Smoking status: Every Day Packs/day: 1 Types: Cigarettes Smokeless tobacco: Never Substance Use Topics Alcohol use: Not Currently MIGUEL Tressa is seen in follow up. She [...] Rate 11/28/2016 51 Atrial Rate 11/28/2016 51 MA Interval 11/28/2016 170 QRS DURATION 11/28/2016 100 QT Interval 11/28/2016 486 QTC CALCULA (more content not included)... [facility] Progress note 01-21-2023 Note Date & Type Note Facility 01-21-2023 Note Stable without any w orsening symptoms, continue ASA, plavix and lipitor [facility] Progress note 01-21-2023 Note Date & Type Note Facility 01-21-2023 Note Hypertension is well controlled 122/73 Continue amlodipine, lisinopril, metoprolol, & imdur [facility] Progress note 01-21-2023 Note Date & Type Note Facility 01-21-2023 Note Coronary artery dise ase is stable Continue GDMT- ASA, lipitor, metoprolol and lisinopril continue risk factor modifications- heart healthy diet, regular exercise as tolerated and continue all medications. [facility] Progress note 01-21-2023 Note Date & Type [...] and are negative. Previous HPI per Dr Dooley- She is a 71-year-old lady with history [...] In March 2013 was admitted to the [facility] with a non-ST segment elevation myocardial infarction [...] Normal rate a (more content not included)... [facility] Progress note 01-21-2023 Note Date & Type Note Facility 01-21-2023 Note Patient here for 6 m o follow up CAD, hypertension, and hyperlipidemia. Had labs in Jun 2022 after last apt. Denies chest pain and SOB. Stills smokes about 1 PPD, sometimes less. Review of Systems Respiratory: Positive for cough. Musculoskeletal: Positive for back pain. All other systems reviewed and are negative. [facility] Clinical Note 03-10-2022 Note Date & Type [...] Myocardial perfusion images will be reported separately. [facility] Signed and Approved by: DR DARBY DOOLEY 03/24/2022 17:31:00 [facility] Summary Purpose Family History No Family History Records FoundNo Family History Records FoundNo Family History Records Found Advance Directives No Advanced Directives Records FoundNo Advanced Directives Records FoundNo Advanced Directives Records Found Additional Source Comments INFORMATION SOURCE (unrecogn ized section and content) DATE CREATED AUTHOR 08/02/2018 [facility] DATE CREATED AUTHOR AUTHOR'S ORGANIZ ATION 07/26/2022 [facility] DATE CREATED AUTHOR AUTHOR'S ORGANIZ ATION 01/18/2024 [facility] FOR RECORDS PERTAINING TO PATIENTS WHO ARE [...] BE BASED ON THE PRIMARY CLINICAL RECORDS. [employer] provides no warranty or guarantee of the accuracy or completeness of information in this document.
--- NOTE | 2024-03-15 15:00 | CA_ITS ---
Patient Name: KYLE ALLEN MR#: [id number] : 1950 Exam Date: 03/15/2024 Ordering Doctor: JAMAR ZARATE ECHOCARDIOGRAM REPORT PROCEDURE: CA ECHO DOPPLER COMPLETE INDICATIONS: Heart failure with reduced ejection fraction, CABG, PTCA, NV, hypertension, smoker COMPARISON: None. DESCRIPTION: COMPLETE ECHOCARDIOGRAM Real-time transthoracic echocardiography with 2D, M-mode, spectral and color flow Doppler performed. QUALITY: Technical quality was good. LEFT VENTRICLE: Normal chamber size. Thickened septal wall. Mild concentric left ventricular hypertrophy. Normal systolic function. LV EF: Normal left ventricular ejection fraction, (>55%). DIASTOLIC: Diastolic function is indeterminate. ATRIAL SEPTUM: Visually appears intact. LEFT ATRIUM: Mild chamber dilatation. RIGHT ATRIUM: Mild chamber dilatation. RIGHT VENTRICLE: Normal chamber size. Normal right ventricular systolic function. TRICUSPID VALVE: Normal mobility and thickness. No stenosis with trivial regurgitation. No evidence of pulmonary hypertension. RVSP 23 mmHg MITRAL VALVE: Normal mobility and thickness. No evidence of mitral valve stenosis. There is no mitral annular calcification. Trivial mitral regurgitation. AORTIC VALVE: Normal trileaflet appearance. Mildly calcified aortic valve. Mildly diminished mobility. Doppler velocity suggests no aortic valve stenosis. No aortic regurgitation. AORTIC ROOT: Normal diameter and appearance. Ascending aorta is normal in size. PULMONIC VALVE: Normal thickness and mobility. No stenosis. Trivial regurgitation. PERICARDIUM: No evidence of pericardial effusion. IVC: Collapses with inspirations. PLEURA: CONCLUSION: 1. Mild concentric left ventricular hypertrophy with normal systolic function. LVEF is 55 to 60%. 2. Normal right ventricular size and systolic function. 3. Mild biatrial dilatation. 4. No significant valvular dysfunction. 5. Normal right-sided pressures. Adult Echocardiography Procedure Report Left Ventricle LVEDD (3.7 - 5.6 cm): 4.31 cm LVESD (2.2 - 4.0 cm): 2.67 cm LVIVS thickness (0.6 - 1.2 cm): 1.47 cm LVPW thickness (0.5 - 1.0 cm): 0.81 cm e': 0.10 m/s E - e': 5.77 LVOT Max Gradient: 4.70 mm[Hg] LVOT Area (cm2): 1.08 m/s Peak Velocity (LVOT): 1.08 m/s Mean Velocity (LVOT): 0.76 m/s LVOT Diameter 1.71 cm Left Atrium LA Volume Index (2D A2C): 27.52 ml/m2 Left Atrium Systolic Dimension: 3.81 cm Mitral Valve MV E to A Ratio: 0.89 Mitral Valve A-Wave Peak Velocity: 0.63 m/s Mitral Valve E-Wave Peak Velocity: 0.56 m/s Right Ventricle Aorta AO Root Diam: 3.35 cm Ascending Ao Diam: 2.45 cm Aortic Valve AoV Area (Peak Nicko): 1.31 cm2, 1.31 cm2 AoV Area (VTI): 1.84 cm2, 1.22 cm2 Peak Velocity(Antegrade Flow): 1.91 m/s, 1.53 m/s Peak Gradient(Antegrade Flow): 14.59 mm[Hg], 9.31 mm[Hg] Mean Velocity(Antegrade Flow): 1.28 m/s, 0.82 m/s Mean Gradient(Antegrade Flow): 7.62 mm[Hg], 3.58 mm[Hg] Velocity Time Integral: 45.94 cm, 30.44 cm Tricuspid Valve Peak Velocity (Regurgitant Flow): 2.20 m/s, 1.79 m/s Pulmonic Valve Mean Gradient: 2.48 mm[Hg] Mean Velocity: 0.73 m/s Peak Velocity: 1.11 m/s, 1.11 m/s Peak Gradient: 4.89 mm[Hg], 4.89 mm[Hg] Right Atrium Right Atrium Systolic Pressure: 25.00 ml, 25.00 ml Dictated by: Flakito Strauss M.D. on 03/16/2024 at 16:11 Approved by: Flakito Strauss M.D. on 03/16/2024 at 16:17
== END 2024-03-15 14:42 | disposition home or self-care (01) ==
LOC: CARD 14:42
PROVIDERS: PCP Family Medicine; Visit Provider Nurse Practitioner
DX: I25.10 Atherosclerotic heart disease of native coronary artery without angina pectoris (principal); I50.22 Chronic systolic (congestive) heart failure
CPT/HCPCS: 93306

== ENCOUNTER 2024-09-01 21:39 | Emergency (ER) | payer MEDICARE, SELFPAY ==
--- OUTSIDE RECORDS SUMMARY | 2024-09-01 21:51 | XMS_ITS | CCD ---
Author Organization [facility] Care Team Providers Care Command Center Analyst Name Role Phone PHYSICIAN, DEFAULT Unavailable Unavailable PHYSICIAN, DEFAULT Unavailable Unavailable SIL BAIG Unavailable Unavailable JESICA QUACH Attending Unavailable JESICA QUACH Consulting Unavailable JESICA QUACH Admitting Unavailable NADZARI, DR MAHESH Paiz Primary Care Unavailable MOUKAGLORIA, DR PASTOR Attending Unavailable MOUKAGLORIA, DR PASTOR Admitting Unavailable ZIEBER, DR ERIC Gauatm Consulting Unavailable CHRISTINA, DR MAHESH Paiz Primary Care Unavailable SOUMYA, DR PASTOR Consulting Unavailable MAIN, JESICA Consulting Unavailable JESICA QUACH Admitting Unavailable REQUEST, DR RODRIGUEZ LISTED Primary Care Unavaila JESICA Echeverria Attending Unavailable ELLIOT, JAMAR Attending Unavailable SOUMYA, DARBY Attending Unavailable Mahesh Hobson MD Primary Care Provider Allergies Allergy Classification Reported Allergen(s) Allergy Type Date of Onset Reaction(s) Facility (2 sources) Shellfish Containing Products; Translations: [SHELLFISH CONTAINING PRODUCTS] Drug allergy (disorder) 03-25-2013 [facility] Repository Medications Current Medications Medication Drug Class(es) Dates Sig (Normalized) Sig (Original) amLODIPine 5 mg oral tablet (1 source) Dihydropyridine Calcium Channel Matthew Start: 12-23-2023 take 1 tablet by mouth once daily amLODIPine (Norvasc) 5 MG tablet TAKE 1 TABLET BY MOUTH EVERY DAY FOR 90 DAYS 12/23/2023 Active aspirin 81 mg chewable tablet (1 source) Platelet Aggregation Inhibitor, Nonsteroidal Anti-inflammatory Drug aspirin 81 MG chewable tablet Chew 162 mg in the morning. Active atorvastatin 80 mg oral tablet (1 source) HMG-CoA Reductase Inhibitor take 1 tablet by mouth once daily atorvastatin (Lipitor) 80 MG tablet Take 1 tablet by mouth Daily Active 24 hr isosorbide mononitrate 120 mg extended release oral tablet (1 source) Nitrate Vasodilator Start: 12-23-2023 take 1 tablet by mouth once daily isosorbide mononitrate ER (Imdur) 120 MG 24 hr tablet Take 1 tablet by mouth Daily 12/23/2023 Active lisinopril 40 mg oral tablet (1 source) Angiotensin Converting Enzyme Inhibitor take 1 tablet by mouth once daily lisinopril 40 MG tablet Take 1 tablet by mouth Daily Active metoprolol tartrate 50 mg oral tablet (1 source) beta-Adrenergic Matthew Start: 12-23-2023 End: 12-22-2024 take 1 tablet by mouth in the morning metoprolol tartrate (Lopressor) 50 MG tablet Take 50 mg by mouth in the morning and 50 mg in the evening. 12/23/2023 12/22/2024 Active Problems Active Problems Problem Classification Problem Date Documented Date Episodic/Chronic Chronic kidney disease (1 source) Chronic kidney disease stage 3A ; Translations: [CKD stage 3a, GFR 45-59 ml/min] Onset: 01-13-2024 01-13-2024 Chronic Chronic obstructive pulmonary disease and bronchiectasis (1 source) Chronic obstructive lung disease; Translations: [Chronic obstructive pulmonary disease, unspecified] Onset: 04-04-2013 01-11-2024 Chronic Congestive heart failure; nonhypertensive (2 sources) Chronic systolic (congestive) heart failure; Translations: [Chronic systolic (congestive) heart failure] Onset: 03-01-2024 Chronic Coronary atherosclerosis and other heart disease (9 sources) Atherosclerotic heart disease of [place] coronary artery without angina pectoris; Translations: [Atherosclerotic heart disease of [place] coronary artery with other forms of angina pectoris] Onset: 04-04-2013 Resolved: 01-21-2024 Chronic Disorders of lipid metabolism (4 sources) Mixed hyperlipidemia; Translations: [Hyperlipidemia] Onset: 04-04-2013 Chronic Essential hypertension (7 sources) Essential (primary) hypertension; Translations: [Essential hypertension] Onset: 04-04-2013 Chronic Nutritional deficiencies (1 source) Vitamin D deficiency; Translations: [Vitamin D deficiency, unspecified] Onset: 01-11-2024 01-11-2024 Chronic Other lower respiratory disease (3 sources) Multiple nodules of lung; Translations: [Other nonspecific abnormal finding of lung field] Onset: 08-01-2024 4 Episodic Peripheral and visceral atherosclerosis (3 sources) Peripheral vascular disease, unspecified; Translations: [Peripheral vascular disease, unspecified] Onset: 07-22-2022 Chronic Substance-related disorders (3 sources) Nicotine dependence; Translations: [Nicotine dependence, unspecified, uncomplicated] Onset: 01-21-2024 08-01-2024 Chronic Past or Other Problems Problem Classification Problem Date Documented Da te Episodic/Chronic Coronary atherosclerosis and other heart disease (4 sources) Presence of coronary angioplasty implant and graft; Translations: [Presence of aortocoronary bypass graft] Onset: 07-31-2023 Episodic Diabetes mellitus without complication (1 source) Prediabetes; Translations: [Prediabetes] Onset: 01-21-2024 01-21-2024 Episodic Other aftercare (1 source) Long-term current use of drug therapy; Translations: [Other mcfp (current) drug therapy] Onset: 01-11-2024 01-11-2024 Episodic Other bone disease and musculoskeletal deformities (1 source) Osteopenia; Translations: [Other specified disorders of bone density and structure, left thigh] Onset: 01-21-2024 01-21-2024 Episodic Results Test Name Value Interpretation Reference Range Facility 36on 03-22-2024 36 Regarding echo performed on 03/15/2024: JAY Jordan MA Echo looks pretty good, normal EF/ LV function No siginificant valvular issues. Spoke with patient and made her aware. She verbalized understanding. Normal [facility] Office Visiton 03-01-2024 Follow-up visit [id number] Danica Riddle 1950 F Date Provider Department Center 03/01/2024 Kindra-JAMAR ZARATE Family History Problem Relation Age of Onset Coronary artery disease Mother Diabetes Father Family Status - Relation Status Age at Mother Father Level of Service:43536 PA OFFICE/OUTPATIENT ESTABLISHED MOD MDM 30 MIN [facility] Orders Onlyon 01-15-2024 Orders Only [id number] Danica Riddle 1950 F Date Provider Department Center 01/15/2024 [id number], HISTORICAL YENNY Domínguez Family History Problem Relation Age of Onset Coronary artery disease Mother Diabetes Father Family Status - Relation Status Age at Mother Father Normal [facility] Office Visiton 07-31-2023 Follow-up visit [id number] VenkateshDanica Bruno 1950 F Date Provider Department Center 07/31/2023 DARBY POWER [facility] Family History Problem Relation Age of Onset Coronary artery disease Mother Diabetes Father Family Status - Relation Status Age at Mother Father Level of Service:71769 PA OFFICE/OUTPATIENT ESTABLISHED LOW MDM 20-29 MIN Normal [facility] CBC AUTO DIFFon 07-23-2022 BASO # 0.1 103/ul Normal 0.0-0.1 [facility] Comment on above: Performed By: #### C BC #### [facility] [address] [place] [address] Dr. Geeta Ferrer Basophils/100 WBC (Bld) 1.0 % Normal 0.2-2.0 [facility] Comment on above: Performed By: #### C BC #### [facility] [address] [place] [address] Dr. Geeta Ferrer EO # 0.2 103/ul Normal 0.0-0.7 [facility] Comment on above: Performed By: #### C BC #### [facility] [address] [place] [address] Dr. Geeta Ferrer Eosinophils/100 WBC (Bld) 2.2 % Normal 0.9-7.0 [facility] Comment on above: Performed By: #### C BC #### [facility] [address] [address] [address] Geeta Ferrer Erythrocyte distribution width (RBC) [Ratio] 14.0 % Normal 11.0-15.0 [facility] Comment on above: Performed By: #### C BC #### [facility] [address] [place] [address] Dr. Geeta Ferrer Hematocrit (Bld) [Volume fraction] 42.8 % Normal 36.0-48.0 [facility] Comment on above: Performed By: #### C BC #### [facility] [address] [place] [address] Dr. Geeta Ferrer Hemoglobin (Bld) [Mass/Vol] 13.8 g/dL Normal 12.0-16.0 [facility] Comment on above: Performed By: #### C BC #### [facility] [address] [place] [address] Dr. Geeta Ferrer IG # 0.03 10e3/ul Normal 0.00-0.03 [facility] Comment on above: Performed By: #### C BC #### [facility] [address] [place] [address] Dr. Geeta Ferrer IG % 0.4 % Normal 0.0-0.5 [facility] Comment on above: Performed By: #### C BC #### [facility] [address] [place] [address] Dr. Geeta Ferrer LYMPH # 1.8 103/ul Normal 1.2-3.8 [facility] Comment on above: Performed By: #### C BC #### [facility] [address] [place] [address] Dr. Geeta Ferrer Lymphocytes/100 WBC (Bld) 24.7 % Normal 20.5-60.0 [facility] Comment on above: Performed By: #### C BC #### [facility] [address] [place] [address] Dr. Geeta Ferrer MANUAL DIFF REQ NO Normal [facility] Comment on above: Performed By: #### C BC #### [facility] [address] [place] [address] Dr. Geeta Ferrer MCH (RBC) [Entitic mass] 30.1 pg Normal 26.7-34.0 [facility] Comment on above: Performed By: #### C BC #### [facility] [address] [place] [address] Dr. Geeta Ferrer MCHC (RBC) [Mass/Vol] 32.2 g/dL Normal 29.9-35.2 [facility] Comment on above: Performed By: #### C BC #### [facility] [address] [place] [address] Dr. Geeta Ferrer MCV (RBC) [Entitic vol] 93.2 fL Normal 81.0-99.0 [facility] Comment on above: Performed By: #### C BC #### [facility] [address] [place] [address] Dr. Getea Ferrer MONO # 0.6 103/ul Normal 0.3-0.8 [facility] Comment on above: Performed By: #### C BC #### [facility] [address] [place] [address] Dr. Geeta Ferrer Monocytes/100 WBC (Bld) 8.5 % Normal 1.7-12.0 [facility] Comment on above: Performed By: #### C BC #### [facility] [address] [place] [address] Dr. Geeta Ferrer NEUT # 4.6 103/ul Normal 1.4-6.5 [facility] Comment on above: Performed By: #### C BC #### [facility] [address] [place] [address] Dr. Geeta Ferrer Neutrophils/100 WBC (Bld) 63.2 % Normal 43.0-75.0 [facility] Comment on above: Performed By: #### C BC #### [facility] [address] [place] [address] Dr. Geeta Ferrer Platelet mean volume (Bld) [Entitic vol] 12.0 fL Normal 9.5-13.5 [facility] Comment on above: Performed By: #### C BC #### [facility] [address] [place] [address] Dr. Geeta Ferrer PLT 132 103/ul Critically low 150-450 [facility] Comment on above: Performed By: #### C BC #### [facility] [address] [place] [address] Dr. Geeta Ferrer RBC 4.59 106/ul Normal 4.20-5.40 [facility] Comment on above: Performed By: #### C BC #### [facility] [address] [place] [address] Dr. Geeta Ferrer WBC 7.3 103/ul Normal 4.0-11.0 [facility] Comment on above: Performed By: #### C BC #### [facility] [address] [address] [address] Geeta Ferrer LIPID PROFILEon 07-23-2022 CHOL-HDL RATIO NORM SEE BELOW Normal [facility] Comment on above: Result Comment: 3.3 - 4.4 LOW RISK 4.4 - 7.1 AVERAGE RISK 7.1 - 11.0 MODERATE RISK >11.0 HIGH RISK Performed By: #### T SH, CMP, LIPID #### [facility] [address] [address] [address] Geeta Ferrer Cholesterol [Mass/Vol] 137 mg/dL Normal <=200 [facility] Comment on above: Performed By: #### T SH, CMP, LIPID #### [facility] [address] [address] [address] Geeta Ferrer Cholesterol in HDL [Mass/Vol] 50 mg/dL Normal 40-60 [facility] Comment on above: Performed By: #### T MAYANK, CMP, LIPID #### [facility] [address] [address] [address] Geeta Ferrer Cholesterol in LDL [Mass/Vol] 67.6 mg/dL Normal [facility] Comment on above: Performed By: #### T MAYANK, CMP, LIPID #### [facility] [address] [address] [address] Geeta Ferrer Cholesterol.total/ Cholesterol in HDL [Mass ratio] 2.7 {ratio} Normal [facility] Comment on above: Performed By: #### T SH, CMP, LIPID #### [facility] [address] [address] [address] Geeta Ferrer HDL NORMAL > or = 60 mg/dl - LO W CARDIOVASCULAR RISK <40 mg/dl - HIGH CARDIOVASCULAR RISK Normal [facility] Comment on above: Performed By: #### T SH, CMP, LIPID #### [facility] [address] [place] [address] Dr. Geeta Ferrer LDL CALC NORMAL SEE BELOW Normal [facility] Comment on above: Result Comment: <100 mg/dl OPTIMAL 100 - 129 mg/dl NEAR OR ABOVE OPTIMAL 130 - 159 mg/dl BORDERLINE HIGH 160 - 189 mg/dl HIGH >190 mg/dl VERY HIGH Performed By: #### T SH, CMP, LIPID #### [facility] [address] [place] [address] Dr. Geeta Ferrer Triglyceride [Mass/Vol] 97 mg/dL Normal <=150 [facility] Comment on above: Performed By: #### T SH, CMP, LIPID #### [facility] [address] [address] [address] Geeta Ferrer VLDL CALC 19.4 mg/dL Normal [facility] Comment on above: Performed By: #### T SH, CMP, LIPID #### [facility] [address] [place] [address] Dr. Geeta Ferrer PROF 14(COMP METB)on 022 Albumin [Mass/Vol] 4.1 g/dL Normal 3.4-5.0 [facility] Comment on above: Performed By: #### T SH, CMP, LIPID #### [facility] [address] [place] [address] Dr. Geeta Ferrer Albumin/Globulin [Mass ratio] 1.3 {ratio} Normal [facility] Comment on above: Performed By: #### T SH, CMP, LIPID #### [facility] [address] [place] [address] Dr. Geeta Ferrer ALP [Catalytic activity/Vol] 76 U/L Normal 46-116 [facility] Comment on above: Performed By: #### T SH, CMP, LIPID #### [facility] [address] [place] [address] Dr. Geeta Ferrer ALT [Catalytic activity/Vol] 19 U/L Normal 14-59 [facility] Comment on above: Performed By: #### T SH, CMP, LIPID #### [facility] [address] [place] [address] Dr. Geeta Ferrer Anion gap [Moles/Vol] 14.5 mmol/L Normal [facility] Comment on above: Performed By: #### T SH, CMP, LIPID #### [facility] [address] [place] [address] Dr. Geeta Ferrer AST [Catalytic activity/Vol] 14 U/L Critically low 15-37 [facility] Comment on above: Performed By: #### T SH, CMP, LIPID #### [facility] [address] [place] [address] Dr. Geeta Ferrer Bilirubin [Mass/Vol] 0.4 mg/dL Normal 0.2-1.0 [facility] Comment on above: Performed By: #### T SH, CMP, LIPID #### [facility] [address] [place] [address] Dr. Geeta Ferrer Calcium [Mass/Vol] 9.5 mg/dL Normal 8.5-10.1 [facility] Comment on above: Performed By: #### T SH, CMP, LIPID #### [facility] [address] [place] [address] Dr. Geeta Ferrer Chloride [Moles/Vol] 105 mmol/L Normal 98-107 [facility] Comment on above: Performed By: #### T SH, CMP, LIPID #### [facility] [address] [place] [address] Dr. Geeta Ferrer CO2 [Moles/Vol] 25.9 mmol/L Normal 21.0-32.0 [facility] Comment on above: Performed By: #### T SH, CMP, LIPID #### [facility] [address] [place] [address] Dr. Geeta Ferrer Creatinine [Mass/Vol] 0.91 mg/dL Normal 0.55-1.02 [facility] Comment on above: Performed By: #### T SH, CMP, LIPID #### [facility] [address] [place] [address] Dr. Geeta Ferrer EGFR-AF [place] >60 Normal >=60 [facility] Comment on above: Performed By: #### T SH, CMP, LIPID #### [facility] [address] [place] [address] Dr. Geeta Ferrer EGFR-NON AF [place] >60 Normal >=60 [facility] Comment on above: Performed By: #### T SH, CMP, LIPID #### [facility] [address] [place] [address] Dr. Geeta Ferrer Globulin (S) [Mass/Vol] 3.1 g/dL Normal [facility] Comment on above: Performed By: #### T MAYANK CMP, LIPID #### [facility] [address] [address] [address] Geeta Ferrer Glucose [Mass/Vol] 113 mg/dL Critically high 74-106 [facility] Comment on above: Performed By: #### T MAYANK CMP, LIPID #### [facility] [address] [place] [address] Dr. Geeta Ferrer Potassium [Moles/Vol] 4.4 mmol/L Normal 3.5-5.1 [facility] Comment on above: Performed By: #### T MAYANK CMP, LIPID #### [facility] [address] [place] [address] Dr. Geeta Ferrer Protein [Mass/Vol] 7.2 g/dL Normal 6.4-8.2 [facility] Comment on above: Performed By: #### T MAYANK CMP, LIPID #### [facility] [address] [place] [address] Dr. Geeta Ferrer Sodium [Moles/Vol] 141 mmol/L Normal 136-145 [facility] Comment on above: Performed By: #### T MAYANK CMP, LIPID #### [facility] [address] [place] [address] Dr. Geeta Ferrer Urea nitrogen [Mass/Vol] 14.0 mg/dL Normal 7.0-18.0 [facility] Comment on above: Performed By: #### T MAYANK CMP, LIPID #### [facility] [address] [place] [address] Dr. Geeta Ferrer Urea nitrogen/Creatinin e [Mass ratio] 15.4 mg/mg Normal [facility] Comment on above: Performed By: #### T MAYANK CMP, LIPID #### [facility] [address] [place] [address] Dr. Geeta Ferrer TSHon 07-23-2022 TSH 2.938 uIU/mL Normal 0.358-3.740 [facility] Comment on above: Performed By: #### T SH, CMP, LIPID #### [facility] [address] [address] [address] Geeta Ferrer NM STRESS/REST MULTIon 03-10 NM STRESS/REST MULTI Patient: TRESSA RIDDLE Exam Date: 03/10/2022 : 1950 Gender:F Ordering : DR DARBY DOOLEY M.D. Admission #: [id number] Family : Order #: [id number] CLICK HERE TO VIEW EXAM RADIOLOGY REPORT [...] M.D. on 03/10/2022 at 13:49 Normal [facility] PROF CHEM 8 (BAS METB)on Anion gap [Moles/Vol] 8.8 mmol/L Normal [facility] Comment on above: Performed By: #### B MP #### [facility] [address] [address] [address] Geeta Ferrer Calcium [Mass/Vol] 9.7 mg/dL Normal 8.5-10.1 [facility] Comment on above: Performed By: #### B MP #### [facility] [address] [address] [address] Geeta Ferrer Chloride [Moles/Vol] 107 mmol/L Normal 98-107 [facility] Comment on above: Performed By: #### B MP #### [facility] [address] [address] [address] Geeta Ferrer CO2 [Moles/Vol] 29.0 mmol/L Normal 21.0-32.0 [facility] Comment on above: Performed By: #### B MP #### [facility] [address] [place] [address] Dr. Geeta Ferrer Creatinine [Mass/Vol] 0.99 mg/dL Normal 0.55-1.02 [facility] Comment on above: Performed By: #### B MP #### [facility] [address] [address] [address] Geeta Ferrer EGFR-AF [place] >=60 Normal >=60 [facility] Comment on above: Performed By: #### B MP #### [facility] [address] [address] [address] Geeta Ferrer EGFR-NON AF [place] 55 mL/min/1.73m2 Critically low >=60 [facility] Comment on above: Performed By: #### B MP #### [facility] [address] [address] [address] Geeta Ferrer Glucose [Mass/Vol] 100 mg/dL Normal 74-106 [facility] Comment on above: Performed By: #### B MP #### [facility] [address] [address] [address] Geeta Ferrer Potassium [Moles/Vol] 4.8 mmol/L Normal 3.5-5.1 [facility] Comment on above: Performed By: #### B MP #### [facility] [address] [address] [address] Geeta Ferrer Sodium [Moles/Vol] 140 mmol/L Normal 136-145 [facility] Comment on above: Performed By: #### B MP #### [facility] [address], [place] [address] Dr. Geeta Ferrer Urea nitrogen [Mass/Vol] 19.0 mg/dL Critically high 7.0-18.0 [facility] Comment on above: Performed By: #### B MP #### [facility] [address], [place] [address] Dr. Geeta Ferrer Urea nitrogen/Creatinin e [Mass ratio] 19.2 mg/mg Normal [facility] Comment on above: Performed By: #### B MP #### [facility] [address] [address] [address] Geeta Ferrer Encounters Encounter Date Encounter Type Care Provider Facility Start: 08-01-2024 End: 08-01-2024 Orders Only Mahesh Hobson MD Work Phone: [facility] Comment on above: Lung nodules (Primar y Dx); Nicotine dependence with current use Start: 03-01-2024 End: 03-01-2024 ambulatory JAMAR ZARATE [facility] Start: 07-31-2023 End: 07-31-2023 ambulatory DARBY THAPABERHANE [facility] Start: 07-26-2022 Encounter for genera l adult medical examination without abnormal findings JESICA QUACH [facility] Start: 07-23-2022 End: 07-24-2022 ambulatory JESICA QUACH Facility:[facility] Start: 07-23-2022 End: 07-24-2022 Encounter for general adult medical examination without abnormal findings JESICA QUACH Facility:[facility] Start: 03-10-2022 End: 03-11-[address] DARBY DOOLEY Facility:[facility] Start: 02-17-2022 End: 02-18-2022 ambulatory JESICA QUACH Facility:[facility] Start: 07-06-2018 End: 07-07-2018 Patient encounter procedure DEFAULT PHYSICIAN Facility:[facility] Procedures Date Procedure Procedure Detail Performing Clinician Start: 12-26-2015 Colonoscopy Mahesh rodriguez MD Work Phone: Plan of Treatment Date Care Activity Detail Author Start: 12-25-2025 Screening for malign ant neoplasm of colon [facility] Start: 01-23-2025 Screening for malign ant neoplasm of breast Mammogram [facility] Comment on above: Postponed from 05/10 (Patient Refused) Start: 08-01-2024 End: 08-01-2025 CT Chest for screening WO contrast CT lung screening low dose Imaging Routine Lung nodules Nicotine dependence with current use Expected: 08/01/2024, Expires: 08/01/2025 [facility] Work Phone: Comment on above: Expected: 08/01/2024 , Expires: 08/01/2025 Start: 04-24-2024 Influenza vaccination Influenza Vacc ine (#1) [facility] Start: 1956 Pneumococcal Vaccine : 65+ Years (1 of 2 - PCV) Pneumococcal Vaccine: 65+ Years (1 of 2 - PCV) [facility] Start: 1950 Medicare Annual Wellness (AWV) Medicare Annual Wellness (AWV) [facility] Start: 1950 Screening for malign ant neoplasm of colon [facility] Immunizations Immunization Date Immunization Notes Care Provider Fa cility 06-11-2023 influenza virus vacc ine, unspecified formulation Mahesh Hobson MD Work Phone: [facility] Payers Date Payer Category Payer Private Health Insurance CLI [id number] 2022 Private Health Insurance EULALIA Gallegos emb [id number] 2015 Medicare MEDICARE [id number] 1959 Medicare [id number] 1959 Unknown [id number] 1950 Unknown [id number] 1950 Unknown [id number] 1950 Unknown [id number] 1950 Unknown [id number] Unknown Social History Date Type Detail Facility Start: 08-24-1967 Tobacco smoking stat [facility] Smokes tobacco daily [facility] Start: 08-24-1967 History of tobacco use Cigarette Smo ker [facility] Start: 01-21-2024 Cigarettes smoked cu rrent (pack per day) - Reported 1 [facility] Start: 01-21-2024 Tobacco use and exposure Smoke less tobacco non-user [facility] Start: 01-21-2024 Tobacco use panel [facility] Start: 1950 Sex assigned at Not on file N [facility] Clinical Notes 03-10-2022 to 08-01-2024 Mahesh Hobson MD - 08/01/2024 12:25 PM EST Note Date & Type Note Facility 08-01-2024 History of Present illness Narrative Patient needs repeat CT chest to monitor nodules. Please fax order to [place]. documented in this encounter [facility] 03-01-2024 Note Previous EF in 2012 was 40-45% Repeat echocardiogram to assess cardiac function, LVSF, valvular function [facility] 03-01-2024 Note Coronary artery dise ase is unchanged. Continue current medications. Cardiac status will be reassessed in 6 months. Continue GDMT- ASA, lipitor, metoprolol, imdur and lisinopril [facility] 03-01-2024 Note Hypertension is unch anged. Continue current treatment regimen. Blood pressure will be reassessed at the next regular appointment. [facility] 03-01-2024 Note Continue statin [facility] 03-01-2024 Note No acute concerning symptoms, continue ASA, lipitor [facility] 03-01-2024 Note [facility] CARDIOLOGY PROGR ESS NOTE HPI: Tressa Riddle is a 73 y.o. female here for CAD, PAD, HTN, HPL. HPI Tressa Riddle is a 73 y.o. year old female patient being seen for 6 mo follow up CAD, PAD, and hypertension. Patient here for 6 mo follow up CAD, PAD, hypertension, and hyperlipidemia. Had routine labs with lipid in December 2023. She denies chest pain, SOB, palpitations, and lightheadedness/syncope. Doing very well. Denied any activity limiting symptoms Review of Systems All other systems reviewed and are negative. Previous HPI Tressa is seen in follow up. [...] She has no leg swelling. No syncope Past history: In March 2013 was admitted to the [facility] with a non-ST segment elevation myocardial infarction [...] show any significant arrhythmias. Visit Vitals BP 127/69 (BP Location: Right arm, Patient Position: Sitting) Pulse 57 Ht 1.6 m (5' 3 ) Wt 61.2 kg (135 lb) SpO2 97% BMI 23.91 kg/m??? Smoking Status Every Day BSA 1.65 m??? Allergies Allergen Reactions Shellfish Containing Products GI intolerance Ingesting shrimp, can have iodine on skin Medications: Current Outpatient Medications on File Prior to Visit Medication Sig Dispense Refill amLODIPine (Norvasc) 5 mg tablet Take 1 tablet (5 mg) by mouth in the morning. 90 tablet 3 aspirin 81 mg chewable tablet Chew 2 tablets in the morning. atorvastatin (Lipitor) 80 mg tablet Take 1 tablet (80 mg) by mouth at bedtime. 90 tablet 3 isosorbide mononitrate ER (Imdur) 120 mg 24 hr tablet Take 1 tablet (120 mg) by mouth once daily as directed. 90 tablet 3 lisinopril 40 mg tablet Take 1 tablet (40 mg) by mouth in the morning. 90 tablet 3 metoprolol tartrate (Lopressor) 50 mg tablet Take 1 tablet (50 mg) by mouth in the morning and at bedtime. 180 tablet 3 No current facility-administered medications on file prior to visit. Physical Exam: Constitutional: Appearance: Normal appearance. Without apparent distress HENT: Head: Normocephalic and atraumatic. Nose: Nose normal. Mouth/Throat: Mouth: Mucous membranes are moist. Eyes: Extraocular Movements: Extraocular movements intact. Conjunctiva/sclera: Conjunctivae normal. Neck: Vascular: No JVD. Cardiovascular: Rate and Rhythm: Normal rate and regular rhythm. Pulses: Dorsalis pedis pulses are 3 on the right side and 3on the left side. Posterior tibial pulses are 3 on the right side and 3 on the left side. Heart sounds: Normal heart sounds, S1 normal and S2 normal. Pulmonary: Effort: Pulmonary effort is normal. Breath sounds: Normal breath sounds. Abdominal: General: Bowel sounds are normal. Palpations: Abdomen is soft. Musculoskeletal: General: Normal range of motion. Cervical back: Normal range of motion. Right lower leg: No edema. Left lower leg: No edema. Skin: General: Skin is warm and dry. Capillary Refill: Capillary refill takes less than 2 seconds. Neurological: General: No focal deficit present. Mental Status: She is alert and oriented to person, place, and time. Psychiatric: Mood and Affect: Mood normal. Behavior: Behavior normal. (more content not included)... [facility] 03-01-2024 Note Patient here for 6 m o follow up CAD, PAD, hypertension, and hyperlipidemia. Had routine labs with lipid in December 2023. She denies chest pain, SOB, palpitations, and lightheadedness/syncope. Doing very well. Review of Systems All other systems reviewed and are negative. [facility] 07-31-2023 Note [place] [facility] - [facility] Subjective Tressa Riddle is a [...] Rate 11/28/2016 51 Atrial Rate 11/28/2016 51 PA Interval 11/28/2016 170 QRS DURATION 11/28/2016 100 QT Interval 11/28/2016 486 QTC CALCULA (more content not included)... [facility] 03-10-2022 Note CARDIAC STRESS TEST Requesting Physician: Procedure Date:03/10/2022 Lexiscan Stress Test with myocardial perfusion imaging performed at the [facility]. Informed consent was obtained. An intravenous [...] Myocardial perfusion images will be reported separately. [facility] Signed and Approved by: DR DARBY DOOLEY 03/24/2022 17:31:00 [facility] Evaluation note Diagnosis Essential hypertension ([facility])- Primary Unspecified essential hypertension Chronic obstructive pulmonary disease, unspecified COPD type ([facility]) PAD (peripheral artery disease) ([facility]) Unspecified peripheral vascular disease Prediabetes Other abnormal glucose CKD stage 3a, GFR 45-59 ml/min ([facility]) CAD in [place] artery ([facility]) Nicotine dependence with current use Cigarette nicotine dependence without complication Lung nodules- Primary Other diseases of lung, not elsewhere classified Nicotine dependence with current use documented in this encounter [facility] Summary Purpose Family History No Family History Records FoundNo Family History Records FoundNo Family History Records Found Advance Directives No Advanced Directives Records FoundNo Advanced Directives Records FoundNo Advanced Directives Records Found Additional Source Comments INFORMATION SOURCE (unrecogn ized section and content) DATE CREATED AUTHOR 08/02/2018 [facility] DATE CREATED AUTHOR AUTHOR'S ORGANIZ ATION 07/26/2022 [facility] DATE CREATED AUTHOR AUTHOR'S ORGANIZ ATION 03/24/2024 [facility] Care Teams (unrecognized sec tion and content) Command Center Analyst Relationship Specialty Start Date End Date Mahesh Hobson MD [address] [place] [address] PCP - General Family Medicine 01/21/24 FOR RECORDS PERTAINING TO PATIENTS WHO ARE [...] BE BASED ON THE PRIMARY CLINICAL RECORDS. [facility] [address] [facility]. provides no warranty or guarantee of the accuracy or completeness of information in this document.
== END 2024-09-01 21:45 | disposition left against medical advice (07) ==
LOC: ER 21:49
PROVIDERS: Emergency Provider Emergency Medicine; PCP Family Medicine
DX: Z53.21 Procedure and treatment not carried out due to patient leaving prior to being seen by health care provider (principal)

== ENCOUNTER 2025-01-31 12:43 | Outpatient (OUT) | payer MEDICARE, SELFPAY ==
--- OUTSIDE RECORDS SUMMARY | 2025-01-31 12:51 | XMS_ITS | Clinical Summary ---
Author Organization [facility] Address [id number] [address] [place] [address] Care Team Providers Care Interior Decorator Paperhanging Name Role Phone Unavailable Primary Care Provider Unavailabl e Allergies Active Allergy Reactions Criticality Noted Date Comments Shellfish Containing Products Vomiting 08/11/2014 Ingesting shrimp, can have iodine on skin Medications atorvastatin (LIPITOR) 80 mg tablet Take 80 mg by mouth in the morning. 01/01/2022 Active metoprolol tartrate (LOPRESSOR) 50 mg tablet Take 50 mg by mouth in the morning and 50 mg before bedtime. 12/31/2021 Active amLODIPine (NORVASC) 5 mg tablet Take 5 mg by mouth in the morning. 02/17/2022 Active lisinopriL (PRINIVIL,ZESTRI L) 40 mg tablet Take 40 mg by mouth in the morning. 12/31/2021 Active isosorbide mononitrate (IMDUR) 120 mg 24 hr tablet Take 120 mg by mouth daily. 01/01/2022 Active aspirin 81 mg chewable tablet Chew 162 mg and swallow in the morning. Active Active Problems No known active problems Social History Tobacco Use Types Packs/Day Years Used Date Smoking Tobacco: Every Day Cigarettes Smokeless Tobacco: Never Alcohol Use Standard Drinks/Week Comments Not Currently 0 (1 standard drink = 0.6 oz pur e alcohol) Childcare Answer Date Recorded Childcare Unknown 01/31/2019 Employment Answer Date Recorded Employment Unknown 01/31/2019 Comments No Sex and Gender Information Value Date Recorded Sex Assigned at Not on file Legal Sex Female 1:15 PM EDT Gender Identity Not on file Sexual Orientation Not on file Last Filed Vital Signs Vital Sign Reading Time Taken Comments Blood Pressure 127/65 04/17/2022 11:46 AM EDT Pulse 60 04/17/2022 11:46 AM EDT Temperature 36.2 C (97.1 F) 04/17/2022 11:31 AM EDT Respiratory Rate 19 04/17/2022 11:46 AM EDT Oxygen Saturation 97% 04/17/2022 11:46 AM EDT Inhaled Oxygen Concentration - - Weight 63.5 kg (140 lb) 04/17/2022 10:02 AM EDT Height 157.5 cm (5' 2 ) 04/17/2022 10:02 AM EDT Body Mass Index 25.61 04/17/2022 10:02 AM EDT Plan of Treatment Health Maintenance Due Date Last Done Comments Depression Screening 1962 Tobacco Screening 1962 DTaP,Tdap and Td Vaccines (1 - Tdap) 1969 Zoster (Shingles) Vaccine (1 of 2) 2000 Fall Risk Screening 2015 Adult BMI Screening 04/17/2023 04/17/2022 COVID-19 Vaccine (2023-2 5 season) 2024 05/27/2021, 10/19/2020, 09/30/2020 Influenza Vaccine 04/24/2025 05/27/2021, 06/13/2015 Medical Devices Implanted Type Area Earth Science Technician Device Identifier Shelf Expiration Date Model / Serial / Lot Lens Iol Ultrasert 20.5d - [id number] - [id number] Implanted:Qty: 1 on 03/27/2022 by Lyn Mathews MD at [facility] Lens Left: Eye [employer] 06/17/2024 [id number] 20.5 / [id number] / NA Lens Iol Ultrasert 20.0d - [id number] - [id number] Implanted:Qty: 1 on 04/17/2022 by Lyn Mathews MD at [facility] Lens Right: Eye [employer] 01/13/2025 AU00T0 20.0 / [id number] 1 / NA Insurance MEDICARE [facility] INSURANCE
--- OUTSIDE RECORDS SUMMARY | 2025-01-31 12:51 | XMS_ITS | Encounter Summary ---
Author Organization [facility] Address [address] [place] [address] Care Team Providers Care Stone Rubber Name Role Phone Mahesh Hobson MD Primary Care Provider Encounter Details Date Type Department Care Team (Late st Contact Info) Description 03/16/2024 Clinisync Result Encounter [facility] Department Unsolicited Provider, Generic External Data Social History Tobacco Use Types Packs/Day Years Used Date Smoking Tobacco: Every Day Cigarettes 1 57.4 Started: 1967 Smokeless Tobacco: Never Comments Unknown Sex and Gender Information Value Date Recorded Sex Assigned at Not on file Legal Sex Female 6:35 PM EDT Gender Identity Not on file Sexual Orientation Not on file documented as of this encounter Plan of Treatment Not on file documented as of this encounter Procedures Procedure Name Priority Date/Time Associated Diagnosis Comments CA ECHO DOPPLER COMPLETE 03/16/2024 4:17 PM EDT documented in this encounter Results * CA ECHO DOPPLER COMPLETE (03/16/2024 4:17 PM EDT) Anatomical Region Laterality Modality Other 03/16/2024 4:17 PM EDT Narrative 03/16/2024 4:18 PM EDT The [address] [address] Cardiology Report Signed Patient: TRESSA ALLEN MR#: [id number] : 1950 Acct:[id number] Age/Sex: 73 / F ADM Date: 03/15/24 Loc: CARD Attending Dr: JAMAR ZARATE Ordering Physician: JAMAR ZARATE Date of Service: 03/15/24 Procedure(s): CA echo doppler complete Accession Number(s): [id number] cc: JAMAR ZARATE; Mahesh Hobson M.D. Patient Name: TRESSA ALLEN MR#: [id number] : 1950 Exam Date: 03/15/2024 Ordering Doctor: JAMAR ZARATE ECHOCARDIOGRAM REPORT PROCEDURE: CA ECHO DOPPLER COMPLETE INDICATIONS: Heart failure with reduced ejection fraction, CABG, PTCA, NE, hypertension, smoker COMPARISON: None. DESCRIPTION: COMPLETE ECHOCARDIOGRAM Real-time transthoracic echocardiography with 2D, M-mode, spectral and color flow Doppler performed. QUALITY: Technical quality was good. LEFT VENTRICLE: Normal chamber size. Thickened septal wall. Mild concentric left ventricular hypertrophy. Normal systolic function. LV EF: Normal left ventricular ejection fraction, (>55%). DIASTOLIC: Diastolic function is indeterminate. ATRIAL SEPTUM: Visually appears intact. LEFT ATRIUM: Mild chamber dilatation. RIGHT ATRIUM: Mild chamber dilatation. RIGHT VENTRICLE: Normal chamber size. Normal right ventricular systolic function. TRICUSPID VALVE: Normal mobility and thickness. No stenosis with trivial regurgitation. No evidence of pulmonary hypertension. RVSP 23 mmHg MITRAL VALVE: Normal mobility and thickness. No evidence of mitral valve stenosis. There is no mitral annular calcification. Trivial mitral regurgitation. AORTIC VALVE: Normal trileaflet appearance. Mildly calcified aortic valve. Mildly diminished mobility. Doppler velocity suggests no aortic valve stenosis. No aortic regurgitation. AORTIC ROOT: Normal diameter and appearance. Ascending aorta is normal in size. PULMONIC VALVE: Normal thickness and mobility. No stenosis. Trivial regurgitation. PERICARDIUM: No evidence of pericardial effusion. IVC: Collapses with inspirations. PLEURA: CONCLUSION: 1. Mild concentric left ventricular hypertrophy with normal systolic function. LVEF is 55 to 60%. 2. Normal right ventricular size and systolic function. 3. Mild biatrial dilatation. 4. No significant valvular dysfunction. 5. Normal right-sided pressures. Adult Echocardiography Procedure Report Left Ventricle LVEDD (3.7 - 5.6 cm): 4.31 cm LVESD (2.2 - 4.0 cm): 2.67 cm LVIVS thickness (0.6 - 1.2 cm): 1.47 cm LVPW thickness (0.5 - 1.0 cm): 0.81 cm e': 0.10 m/s E - e': 5.77 LVOT Max Gradient: 4.70 mm[Hg] LVOT Area (cm2): 1.08 m/s Peak Velocity (LVOT): 1.08 m/s Mean Velocity (LVOT): 0.76 m/s LVOT Diameter 1.71 cm Left Atrium LA Volume Index (2D A2C): 27.52 ml/m2 Left Atrium Systolic Dimension: 3.81 cm Mitral Valve MV E to A Ratio: 0.89 Mitral Valve A-Wave Peak Velocity: 0.63 m/s Mitral Valve E-Wave Peak Velocity: 0.56 m/s Right Ventricle Aorta AO Root Diam: 3.35 cm Ascending Ao Diam: 2.45 cm Aortic Valve AoV Area (Peak Nicko): 1.31 cm2, 1.31 cm2 AoV Area (VTI): 1.84 cm2, 1.22 cm2 Peak Velocity(Antegrade Flow): 1.91 m/s, 1.53 m/s Peak Gradient(Antegrade Flow): 14.59 mm[Hg], 9.31 mm[Hg] Mean Velocity(Antegrade Flow): 1.28 m/s, 0.82 m/s Mean Gradient(Antegrade Flow): 7.62 mm[Hg], 3.58 mm[Hg] Velocity Time Integral: 45.94 cm, 30.44 cm Tricuspid Valve Peak Velocity (Regurgitant Flow): 2.20 m/s, 1.79 m/s Pulmonic Valve Mean Gradient: 2.48 mm[Hg] Mean Velocity: 0.73 m/s Peak Velocity: 1.11 m/s, 1.11 m/s Peak Gradient: 4.89 mm[Hg], 4.89 mm[Hg] Right Atrium Right Atrium Systolic Pressure: 25.00 ml, 25.00 ml Dictated by: Darby Strauss M.D. on 03/16/2024 at 16:11 Approved by: Darby Strauss M.D. on 03/16/2024 at 16:17 Dictated By: DARBY STRAUSS Signed By: 03/16/241617 DD/ 16 TD/TT: Capsule Maker: Procedure Note Radiology, Radiologist, MD - 03/16/2024 [place] [address] Cardiology Report Signed Patient: TRESSA ALLEN JMR#: [id number] : 1950Acct:[id number] Age/Sex: 73 / FADM Date: 03/15/24 Loc: CARD Attending Dr: JAMAR ZARATE Ordering Physician: JAMAR ZARATE Date of Service: 03/15/24 Procedure(s): CA echo doppler complete Accession Number(s): [id number] cc: JAMAR ZARATE; Mahesh Hobson M.D. Patient Name: TRESSA ALLEN MR#: [id number] : 1950 Exam Date: 03/15/2024 Ordering Doctor: JAMAR ZARATE ECHOCARDIOGRAM REPORT PROCEDURE: CA ECHO DOPPLER COMPLETE INDICATIONS: Heart failure with reduced ejection fraction, CABG, PTCA,NE, hypertension, smoker COMPARISON: None. DESCRIPTION: COMPLETE ECHOCARDIOGRAM Real-time transthoracic echocardiography with 2D, M-mode, spectral and color flow Dopplerperformed. QUALITY: Technical quality was good. LEFT VENTRICLE: Normal chamber size. Thickened septal wall. Mild concentric left ventricular hypertrophy. Normal systolic function. LV EF: Normal left ventricular ejection fraction, (>55%). DIASTOLIC: Diastolic function is indeterminate. ATRIAL SEPTUM: Visually appears intact. LEFT ATRIUM: Mild chamber dilatation. RIGHT ATRIUM: Mild chamber dilatation. RIGHT VENTRICLE: Normal chamber size. Normal right ventricularsystolic function. TRICUSPID VALVE: Normal mobility and thickness. No stenosis with trivial regurgitation. No evidence of pulmonary hypertension. RVSP 23 mmHg MITRAL VALVE: Normal mobility and thickness. No evidence of mitralvalve stenosis. There is no mitral annular calcification. Trivial mitral regurgitation. AORTIC VALVE: Normal trileaflet appearance. Mildly calcified aorticvalve. Mildly diminished mobility. Doppler velocity suggests no aortic valve stenosis. No aortic regurgitation. AORTIC ROOT: Normal diameter and appearance. Ascending aorta is normalin size. PULMONIC VALVE: Normal thickness and mobility. No stenosis. Trivial regurgitation. PERICARDIUM: No evidence of pericardial effusion. IVC: Collapses with inspirations. PLEURA: CONCLUSION: 1. Mild concentric left ventricular hypertrophy with normal systolicfunction. LVEF is 55 to 60%. 2. Normal right ventricular size and systolic function. 3. Mild biatrial dilatation. 4. No significant valvular dysfunction. 5. Normal right-sided pressures. Adult Echocardiography Procedure Report Left Ventricle LVEDD (3.7 - 5.6 cm): 4.31 cm LVESD (2.2 - 4.0 cm): 2.67 cm LVIVS thickness (0.6 - 1.2 cm): 1.47 cm LVPW thickness (0.5 - 1.0 cm): 0.81 cm e': 0.10 m/s E - e': 5.77 LVOT Max Gradient: 4.70 mm[Hg] LVOT Area (cm2): 1.08 m/s Peak Velocity (LVOT): 1.08 m/s Mean Velocity (LVOT): 0.76 m/s LVOT Diameter 1.71 cm Left Atrium LA Volume Index (2D A2C): 27.52 ml/m2 Left Atrium Systolic Dimension: 3.81 cm Mitral Valve MV E to A Ratio: 0.89 Mitral Valve A-Wave Peak Velocity: 0.63 m/s Mitral Valve E-Wave Peak Velocity: 0.56 m/s Right Ventricle Aorta AO Root Diam: 3.35 cm Ascending Ao Diam: 2.45 cm Aortic Valve AoV Area (Peak Nicko): 1.31 cm2, 1.31 cm2 AoV Area (VTI): 1.84 cm2, 1.22 cm2 Peak Velocity(Antegrade Flow): 1.91 m/s, 1.53 m/s Peak Gradient(Antegrade Flow): 14.59 mm[Hg], 9.31 mm[Hg] Mean Velocity(Antegrade Flow): 1.28 m/s, 0.82 m/s Mean Gradient(Antegrade Flow): 7.62 mm[Hg], 3.58 mm[Hg] Velocity Time Integral: 45.94 cm, 30.44 cm Tricuspid Valve Peak Velocity (Regurgitant Flow): 2.20 m/s, 1.79 m/s Pulmonic Valve Mean Gradient: 2.48 mm[Hg] Mean Velocity: 0.73 m/s Peak Velocity: 1.11 m/s, 1.11 m/s Peak Gradient: 4.89 mm[Hg], 4.89 mm[Hg] Right Atrium Right Atrium Systolic Pressure: 25.00 ml, 25.00 ml Dictated by: Darby Strauss M.D. on 03/16/2024 at 16:11 Approved by: Darby Strauss M.D. on 03/16/2024 at 16:17 Dictated By: DARBY STRAUSS Signed By:03/16/241617 DD/ 16 TD/TT: Capsule Maker: us Generic External Data Provider [facility] Final Result documented in this encounter Visit Diagnoses Not on filedocumented in this encounter Care Teams Stone Rubber Relationship Specialty Start Date End Date Mahesh Hobson MD [address] [place] [id number] PCP - General Family Medicine 01/21/24 documented as of this encounter
--- OUTSIDE RECORDS SUMMARY | 2025-01-31 12:51 | XMS_ITS | Encounter Summary ---
Author Organization [facility] Address [address] [place] [address] Care Team Providers Care University Administrator Name Role Phone Mahesh Hobson MD Primary Care Provider [phone] Reason for Visit * Reason Onset Date Comments Med Refill 12/31/2022 Encounter Details Date Type Department Care Team (Late st Contact Info) Description 12/31/2022 Refill [facility] at [facility] [address] [place] [address] Vivi Leal, DENTAL SERVICE CHIEF [address] [place] [phone] Chest pain, unspecified type Social History Tobacco Use Types Packs/Day Years Used Date Smoking Tobacco: Every Day Cigarettes Smokeless Tobacco: Never Alcohol Use Standard Drinks/Week Comments Not Currently 0 (1 standard drink = 0.6 oz pur e alcohol) Sex and Gender Information Value Date Recorded Sex Assigned at Not on file Gender Identity Not on file Sexual Orientation Not on file documented as of this encounter Plan of Treatment Not on file documented as of this encounter Visit Diagnoses Diagnosis Chest pain, unspecified type documented in this encounter Care Teams University Administrator Relationship Specialty Start Date End Date Mahesh Hobson MD [address] [place] [address] PCP - General Family Medicine 03/01/24 documented as of this encounter
--- OUTSIDE RECORDS SUMMARY | 2025-01-31 12:51 | XMS_ITS | Encounter Summary ---
Author Organization [facility] Address [address] [facility] [place] [address] Care Team Providers Care Manager Validation Name Role Phone Mahesh Hobson MD Primary Care Provider [phone] Reason for Visit * Reason Comments Med Refill Encounter Details Date Type Department Care Team (Late st Contact Info) Description 06/17/2022 Refill [facility] Cardiology [address] [place] [phone] Vivi Leal, RUBBER COMPOUNDER SUPERVISOR [address] [place] [phone] Essential (primary) hypertension Social History Tobacco Use Types Packs/Day Years Used Date Smoking Tobacco: Never Assessed Sex and Gender Information Value Date Recorded Sex Assigned at Not on file Gender Identity Not on file Sexual Orientation Not on file documented as of this encounter Plan of Treatment Not on file documented as of this encounter Visit Diagnoses Diagnosis Essential (primary) hypertension Unspecified essential hypertension documented in this encounter Care Teams Manager Validation Relationship Specialty Start Date End Date Mahesh Hobson MD [address] [place] [address] PCP - General Family Medicine 03/01/24 documented as of this encounter
--- OUTSIDE RECORDS SUMMARY | 2025-01-31 12:51 | XMS_ITS | Clinical Summary ---
Author Organization [facility] Address [address] [place] [address] Care Team Providers Care Database Software Technician Name Role Phone Unavailable Primary Care Provider Unavailabl e Social History Tobacco Use Types Packs/Day Years Used Date Smoking Tobacco: Never Assessed Comments Unknown Sex and Gender Information Value Date Recorded Sex Assigned at Not on file Legal Sex Female 9:25 PM EDT Gender Identity Not on file Sexual Orientation Not on file Plan of Treatment Not on file
--- OUTSIDE RECORDS SUMMARY | 2025-01-31 12:51 | XMS_ITS | Encounter Summary ---
Author Organization [facility] Address [address] [place] [address] Care Team Providers Care [employer] Caretaker Name Role Phone Mahesh Hobson MD Primary Care Provider [phone] Reason for Visit * Reason Onset Date Comments Med Refill 12/26/2022 Encounter Details Date Type Department Care Team (Late st Contact Info) Description 12/26/2022 Refill [facility] [address] [place] [address] Vivi Leal, SAND SYSTEM OPERATOR [address] [place] [id number] Essential (primary) hypertension Social History Tobacco Use [...] hypertension documented in this encounter Care Teams [employer] Caretaker Relationship Specialty Start Date End Date Mahesh Hobson MD [address] [place] [address] PCP - General Family Medicine 03/01/24 documented as of this encounter
--- OUTSIDE RECORDS SUMMARY | 2025-01-31 12:51 | XMS_ITS | Clinical Summary ---
Author Organization [facility] Address [address] [place] [address] Care Team Providers Care Infection Control Practitioner Name Role Phone Mahesh Hobson MD Primary Care Provider [phone] Allergies No known active allergies Medications aspirin 81 MG chewable tablet Chew 162 mg in the morning. Active lisinopril 40 MG tablet Take 1 tablet by mouth Daily Active isosorbide mononitrate ER (Imdur) 120 MG 24 hr tablet Take 1 tablet by mouth Daily 12/23/19 24 Active amLODIPine (Norvasc) 5 MG tablet TAKE 1 TABLET BY MOUTH EVERY DAY FOR 90 DAYS 12/23/19 24 Active atorvastatin (Lipitor) 80 MG tablet Take 1 tablet by mouth Daily Active metoprolol tartrate (Lopressor) 50 MG tablet Take 50 mg by mouth in the morning and 50 mg in the evening. 12/23/19 24 Active Nirmatrelvir&Ri tonavir 300/100 (Paxlovid, 300/100,) 20 x 150 MG & 10 x 100MG tablet therapy packIndications :COVID-19 Take 1 each by mouth See administration instructions 1 each 09/02/19 25 Active Active Problems Problem Noted Date Diagnosed Date Lung nodules 08/01/2024 CAD in [place] artery 01/21/2024 Assessment & Plan (01/21/2024 11:53 AM EDT): No pain and follow with cardiology. Osteopenia of left hip 01/21/2024 Prediabetes 01/21/2024 Assessment & Plan (01/21/2024 11:54 AM EDT): Labs show prediabetes and discussed low carb diet. Nicotine dependence with current use 01/21/2024 Assessment & Plan (01/21/2024 11:54 AM EDT): Over 50 pack year smoking history and check LDCT chest. CKD stage 3a, GFR 45-59 ml/min 01/13/2024 Assessment & Plan (01/21/2024 11:53 AM EDT): Renal function stable. Vitamin D deficiency 01/11/2024 Encounter for long-term current use of medicatio n 01/11/2024 PAD (peripheral artery disease) 07/22/2022 Overview (01/11/2024): Last Assessment & Plan: Stable without any worsening symptoms, continue ASA, plavix and lipitor Assessment & Plan (01/21/2024 11:54 AM EDT): Occasional claudication and follow with cardiology. Increase activity and walk regularly. Chronic obstructive lung disease 04/04/2013 Assessment & Plan (01/21/2024 11:53 AM EDT): No SOB and monitor. Stressed need to stop smoking. Essential hypertension 04/04/2013 Overview (01/11/2024): Last Assessment & Plan: Hypertension is well controlled 122/73 Continue amlodipine, lisinopril, metoprolol, & imdur Assessment & Plan (01/21/2024 11:53 AM EDT): BP controlled and monitor PRN. Hyperlipidemia 04/04/2013 Resolved Problems Problem Noted Date Diagnosed Date Resolved Date Coronary atherosclerosis 04/04/2013 Overview (01/11/2024): Last Assessment & Plan: Coronary artery disease is stable Continue GDMT- ASA, lipitor, metoprolol and lisinopril continue risk factor modifications- heart healthy diet, regular exercise as tolerated and continue all medications. Social History Tobacco Use Types Packs/Day Years [...] Sign Reading Time Taken Comments Blood Pressure 130/52 01/21/2024 11:22 AM EDT Pulse 57 01/21/2024 11:22 AM EDT Temperature 35.9 C (96.6 F) 01/21/2024 11:22 AM EDT Respiratory Rate 22 01/21/2024 11:22 AM EDT Oxygen Saturation 95% 01/21/2024 11:22 AM EDT Inhaled Oxygen Concentration - - Weight 63.5 kg (140 lb) 01/21/2024 11:22 AM EDT Height 157.5 cm (5' 2 ) 01/21/2024 11:22 AM EDT Body Mass Index 25.61 01/21/2024 11:22 AM EDT Plan of Treatment Health Maintenance Due Date Last Done Comments CT Colonography 1950 FIT-DNA 1950 FIT 1950 FOBT 1950 Medicare Annual Wellness (AWV) 1950 Sigmoidoscopy 1950 Pneumococcal Vaccine: 65+ Ye ars (1 of 2 - PCV) 1969 Mammogram 1990 Influenza Vaccine (Season Ended) 2025 06/11/2023, 06/07/2022, 05/27/2021, Additional history exists Colonoscopy 12/25/2025 12/26/2015 Colorectal Cancer Screening 12/25/[address] [place] [address] [employer] MEDICARE Care Teams Infection Control Practitioner Relationship Specialty Start Date End Date Mahesh Hobson MD [address] [place] [address] PCP - General Family Medicine 01/21/24
--- OUTSIDE RECORDS SUMMARY | 2025-01-31 12:51 | XMS_ITS | Encounter Summary ---
Author Organization [facility] Address [address] [place] [address] Care Team Providers Care Biomedical Field Service Engineer Name Role Phone Gaby Vasquez MD Primary Care Provider [phone] Encounter Details Date Type Department Care Team (Late st Contact Info) Description 01/30/2024 Clinisync Result Encounter [facility] Department Unsolicited Gaby Vasquez MD [address] [place] [address] Social History Tobacco Use Types Packs/Day Years [...] Procedure Name Priority Date/Time Associated Diagnosis Comments CT LUNG SCREENING LOW DOSE 01/30/2024 6:00 AM EDT documented in this encounter Results * CT LUNG SCREENING LOW DOSE (01/30/2024 6:00 AM EDT) Anatomical Region Laterality Modality Other 01/30/2024 6:00 AM EDT Narrative 01/30/2024 6:02 AM EDT The [address] [address] [address] Scan Report Signed Patient: TRESSA ALLEN MR#: [id number] : 1950 Acct:[id number] Age/Sex: 73 / F ADM Date: 01/28/24 Loc: CT Attending Dr: Gaby Vasquez M.D. Ordering Physician: Gaby Vasquez M.D. Date of Service: 01/28/24 Procedure(s): CT lung screening low-dose Accession Number(s): [id number] cc: Gaby Vasquez M.D. [address] [address] Patient Name: TRESSA ALLEN MRN: [id number] date: 1950 Sex: F Assigned Patient Location: CT Current Patient Location: Accession/Order Number: [id number] Exam Date: 01/28/2024 13:02 Report Date: 01/30/2024 06:00 At the request of: GABY VASQUEZ Procedure: CT lung screening low-dose EXAMINATION: CT lung screening low-dose HISTORY: Nicotine dependence with current use F17.200 COMPARISON: No relevant comparison available. TECHNIQUE: Axial, Coronal, and Sagittal images were created without the administration of IV contrast material. Dose reduction techniques were achieved by using automated exposure control and/or adjustment of mA and/or kV according to patient size and/or use of iterative reconstruction technique. FINDINGS: LUNGS: 8 x 3 x 3 mm nodule within right middle lobe. 4 mm nodule within right lower lobe posterior basilar segment. Several 2 and 3 mm subtle opacities scattered within the lungs. No acute infiltrates. PLEURA: No mass, effusion, or pneumothorax. VASCULATURE: No abnormality. SHIRLEY: No mass or pathologic adenopathy. MEDIASTINUM: No mass or pathologic adenopathy. CARDIAC: No enlargement, pericardial thickening, or pericardial effusion. Coronary artery calcifications: Marked. AORTA: No aneurysm or dissection. CHEST WALL: No mass or axillary adenopathy BONES: No bone lesion or fracture. LIMITED ABDOMEN: No suspicious findings. Limited images of the upper abdomen. OTHER: Negative. CT/CT lung screening low-dose IMPRESSION: 1. Lung-RADS Category 3- Probably benign. Probably benign finding(s)- short term follow up suggested; includes nodules with a low likelihood of becoming a clinically active cancer. Six month LDCT. Electronically authenticated by: ERIC ARRIAZA Date: 01/30/2024 06:00 Dictated By: Eric Arriaza M.D. Signed By: 01/30/24601 DD/ 0600 TD/TT: Chief Investigator: Procedure Note Radiology, Radiologist, MD - 01/30/2024 [place] [address] CT Scan Report Signed Patient: TRESSA ALLEN JMR#: [id number] : 1950Acct:[id number] Age/Sex: 73 / FADM Date: 01/28/24 Loc: CT Attending Dr: Gaby Vasquez M.D. Ordering Physician: Gaby Vasquez M.D. Date of Service: 01/28/24 Procedure(s): CT lung screening low-dose Accession Number(s): [id number] cc: Gaby Vasquez M.D. The [place] [id number] Patient Name: TRESSA ALLEN MRN: [id number] date: 1950 Sex: F Assigned Patient Location: CT Current Patient Location: Accession/Order Number: [id number] Exam Date: 01/28/2024 13:02 Report Date: 01/30/2024 06:00 At the request of: GABY VASQUEZ Procedure: CT lung screening low-dose EXAMINATION: CT lung screening low-dose HISTORY: Nicotine dependence with current use F17.200 COMPARISON: No relevant comparison available. TECHNIQUE: Axial, Coronal, and Sagittal images were created without the administration of IV contrast material. Dose reduction techniques were achieved by using automated exposure control and/or adjustment of mA and/or kV according to patient size and/or use of iterative reconstruction technique. FINDINGS: LUNGS: 8 x 3 x 3 mm nodule within right middle lobe. 4 mm nodule withinright lower lobe posterior basilar segment. Several 2 and 3 mm subtle opacities scattered within the lungs. No acute infiltrates. PLEURA: No mass, effusion, or pneumothorax. VASCULATURE: No abnormality. SHIRLEY: No mass or pathologic adenopathy. MEDIASTINUM: No mass or pathologic adenopathy. CARDIAC: No enlargement, pericardial thickening, or pericardial effusion. Coronary artery calcifications: Marked. AORTA: No aneurysm or dissection. CHEST WALL: No mass or axillary adenopathy BONES: No bone lesion or fracture. LIMITED ABDOMEN: No suspicious findings. Limited images of the upperabdomen. OTHER: Negative. CT/CT lung screening low-dose IMPRESSION: 1. Lung-RADS Category 3- Probably benign. Probably benign finding(s)-short term follow up suggested; includes nodules with a low likelihood ofbecoming a clinically active cancer. Six month LDCT. Electronically authenticated by: ERIC ARRIAZA Date: 01/30/2024 06:00 Dictated By: Eric Arriaza M.D. Signed By:01/30/24601 DD/ 9 TD/TT: Chief Investigator: Gaby Vasquez MD [facility] Final Result documented in this encounter Visit Diagnoses Not on filedocumented in this encounter Care Teams Biomedical Field Service Engineer Relationship Specialty Start Date End Date Gaby Vasquez MD [address] [facility] [place] [address] PCP - General Family Medicine 01/21/24 documented as of this encounter
--- OUTSIDE RECORDS SUMMARY | 2025-01-31 12:51 | XMS_ITS | Encounter Summary ---
Author Organization [facility] Address [address] [place] [address] Care Team Providers Care Mortgage Loan Assistant Name Role Phone Mahesh Hobson MD Primary Care Provider [phone] Encounter Details Date Type Department Care Team (Late st Contact Info) Description 01/13/2024 Orders Only [facility] [address] [place] [phone] Mahesh Hobson MD [address] [place] [address] Social History Tobacco Use Types Packs/Day Years Used Date Smoking Tobacco: Never Assessed Comments Unknown Sex and Gender Information Value Date Recorded Sex Assigned at Not on file Legal Sex Female 6:35 PM EDT Gender Identity Not on file Sexual Orientation Not on file documented as of this encounter Plan of Treatment Not on file documented as of this encounter Visit Diagnoses Not on filedocumented in this encounter Care Teams Mortgage Loan Assistant Relationship Specialty Start Date End Date Mahesh Hobson MD [address] [place] [address] PCP - General Family Medicine 01/21/24 documented as of this encounter
--- OUTSIDE RECORDS SUMMARY | 2025-01-31 12:51 | XMS_ITS | Clinical Summary ---
Author Organization [facility] Address [address] [place] [address] Care Team Providers Care Escrow Representative Name Role Phone Mahesh Hobson MD Primary Care Provider [phone] Allergies Active Allergy Reactions Criticality Noted Date Comments Shellfish Containing Products GI intolerance 08/11/2014 Ingesting shrimp, can have iodine on skin Medications Medication Sig Dispensed Refills Start Date End Date Status aspirin 81 mg chewable tablet Chew 2 tablets in the morning. 09/16/2019 Active lisinopril 40 mg tabletIndications:Ess ential (primary) hypertension Take 1 tablet (40 mg) by mouth in the morning. 90 tablet 3 12/15/2024 12/10/2025 Active amLODIPine (Norvasc) 5 mg tabletIndications:Ess ential (primary) hypertension Take 1 tablet (5 mg) by mouth once daily as directed. 90 tablet 3 12/21/2024 12/21/2025 Active atorvastatin (Lipitor) 80 mg tabletIndications:Hyp erlipidemia, unspecified hyperlipidemia type Take 1 tablet (80 mg) by mouth at bedtime. 90 tablet 3 12/21/2024 12/21/2025 Active isosorbide mononitrate ER (Imdur) 120 mg 24 hr tabletIndications:Celine st pain, unspecified type Take 1 tablet (120 mg) by mouth once daily as directed. 90 tablet 3 12/21/2024 12/21/2025 Active metoprolol tartrate (Lopressor) 50 mg tabletIndications:Ess ential (primary) hypertension Take 1 tablet (50 mg) by mouth in the morning and at bedtime. 180 tablet 3 12/21/2024 12/21/2025 Active Active Problems Problem Noted Date Diagnosed Date Lung nodules 08/01/2024 Heart failure with mildly reduced ejection fract ion 03/01/2024 Assessment & Plan (03/01/2024 12:10 PM EDT): Previous EF in 2012 was 40-45% Repeat echocardiogram to assess cardiac function, LVSF, valvular function Nicotine dependence with current use 01/21/2024 Overview (03/01/2024): Last Assessment & Plan: Over 50 pack year smoking history and check LDCT chest. Osteopenia of left hip 01/21/2024 Prediabetes 01/21/2024 Overview (03/01/2024): Last Assessment & Plan: Labs show prediabetes and discussed low carb diet. CKD stage 3a, GFR 45-59 ml/min 01/13/2024 Overview (03/01/2024): Last Assessment & Plan: Renal function stable. Encounter for long-term current use of medicatio n 01/11/2024 Vitamin D deficiency 01/11/2024 PAD (peripheral artery disease) 07/22/2022 Assessment & Plan (03/01/2024 12:06 PM EDT): No acute concerning symptoms, continue ASA, lipitor Assessment & Plan (01/21/2023 9:47 AM EDT): Stable without any worsening symptoms, continue ASA, plavix and lipitor Palpitations 12/19/2013 Ischemic heart disease 12/19/2013 Dyspnea 05/11/2013 Chest pain 05/11/2013 Acute ill-defined cerebrovascular disease 2012 Essential hypertension 04/04/2013 Assessment & Plan (03/01/2024 12:07 PM EDT): Hypertension is unchanged. Continue current treatment regimen. Blood pressure will be reassessed at the next regular appointment. Assessment & Plan (01/21/2023 9:46 AM EDT): Hypertension is well controlled 122/73 Continue amlodipine, lisinopril, metoprolol, & imdur Hyperlipidemia 04/04/2013 Assessment & Plan (03/01/2024 12:07 PM EDT): Continue statin Coronary atherosclerosis 04/04/2013 Assessment & Plan (03/01/2024 12:09 PM EDT): Coronary artery disease is unchanged. Continue current medications. Cardiac status will be reassessed in 6 months. Continue GDMT- ASA, lipitor, metoprolol, imdur and lisinopril Assessment & Plan (01/21/2023 9:45 AM EDT): Coronary artery disease is stable Continue GDMT- ASA, lipitor, metoprolol and lisinopril continue risk factor modifications- heart healthy diet, regular exercise as tolerated and continue all medications. Chronic obstructive lung disease 04/04/2013 Encounters Date Type Department Care Team Description 12/21/2024 Refill [facility] Heart at [address] [phone] Marjan Joyner MA Essential (primary) hypertension; Hyperlipidemia, unspecified hyperlipidemia type; Chest pain, unspecified type 12/15/2024 Refill [facility] Card[facility] [address] [place] [phone] Arlene Agosto MA Essential (primary) hypertension from Last 3 Months Family History Medical History Relation Name Comments Diabetes Father Coronary artery disease Mother Relation Name Status Comments Father Mother Social History Tobacco Use Types Packs/Day Years Used Date Smoking Tobacco: Every Day Cigarettes Smokeless Tobacco: Never Tobacco Cessation:Ready to Q uit: Not Asked; Counseling Given: Not Answered Alcohol Use Standard Drinks/Week Comments Not Currently 0 (1 standard drink = 0.6 oz pur e alcohol) [place] Safety & Environment Answer Date Rec orded Fear of Current or Ex-Partner Not on file Emotionally Abused Not on file 10/15/2023 Physically Abused Not on file 10/15/2023 Sexually Abused Not on file 10/15/2023 Physically or Sexually Abused Not on file Sex and Gender Information Value Date Recorded Sex Assigned at Not on file Gender Identity Not on file Sexual Orientation Not on file Last Filed Vital Signs Vital Sign Reading Time Taken Comments Blood Pressure 122/68 09/22/2024 1:31 PM EST Pulse 53 09/22/2024 1:31 PM EST Temperature - - Respiratory Rate - - Oxygen Saturation 91% 09/22/2024 1:31 PM EST Inhaled Oxygen Concentration - - Weight 59.9 kg (132 lb) 09/22/2024 1:31 PM EST Height 160 cm (5' 3 ) 09/22/2024 1:31 PM EST Body Mass Index 23.38 09/22/2024 1:31 PM EST Plan of Treatment Health Maintenance Due Date Last Done Comments CT Colonography 1950 Colonoscopy 1950 Colorectal Cancer Screening 1950 Diabetes: Hemoglobin A1C 1950 FIT-DNA 1950 FIT 1950 FOBT 1950 Medicare Annual Wellness (AWV) 1950 Sigmoidoscopy 1950 Pneumococcal Vaccine: 65+ Years (1 of 2 - PCV) 1956 Depression Screening 1962 Adult Tetanus 1972 Mammogram 1990 Zoster Vaccines (1 of 2) 2000 Fall Risk Screening 2015 COVID-19 Vaccine ( season) 2024 06/17/2024, 06/11/2023, 06/07/2022, Additional history exists Influenza Vaccine Completed 06/17/2024, , 06/07/2022, Additional history exists HIB Vaccines Aged Out No longer eligi ble based on patient's age to complete this topic HPV Vaccines Aged Out No longer eligi ble based on patient's age to complete this topic IPV Vaccines Aged Out No longer eligi ble based on patient's age to complete this topic Meningococcal B Vaccine Aged Out No l onger eligible based on patient's age to complete this topic Meningococcal Vaccine Aged Out No nataliia aram eligible based on patient's age to complete this topic Rotavirus Vaccines Aged Out No longer eligible based on patient's age to complete this topic Care Teams Escrow Representative Relationship Specialty Start Date End Date Mahesh Hobson MD [address] [place] [address] PCP - General Family Medicine 03/01/24
--- NOTE | 2025-01-31 12:53 | CT_ITS ---
The [address] [address] Patient Name: KYLE ALLEN MRN: [id number] date: 1950 Sex: F Assigned Patient Location: CT Current Patient Location: CT Accession/Order Number: [id number] Exam Date: 01/31/2025 13:32 Report Date: 01/31/2025 13:35 At the request of: GABY VASQUEZ MD Procedure: CT lung screening low-dose CT CHEST WITHOUT CONTRAST, LOW DOSE SCREENING: CLINICAL DATA: A 74-year old current smoker COMPARISON: Lung screening CT 01/28/2024 TECHNIQUE: Noncontrast axial CT scan images of the chest were obtained under the low dose screening CT protocol. Coronal and sagittal reconstructed images were also submitted. FINDINGS: Mediastinum : Suboptimal evaluation due to low-dose technique. Thoracic aorta appears normal in caliber. Pulmonary trunk appears nondilated. No pericardial effusion. No lymphadenopathy. The esophagus is grossly unremarkable. Small hiatal hernia. Lungs: No focal consolidation, pneumothorax or pleural effusion. Trachea and distal airways appear patent. Scattered tree-in-bud nodules. Mild lung scarring. Diffuse bronchial wall thickening. No suspicious noncalcified pulmonary nodule or mass. Upper abdomen: No acute findings. Bony thorax and chest wall: Soft tissues surrounding the chest wall demonstrate no acute findings. Osseous structures demonstrate degenerative change. CT/CT lung screening low-dose IMPRESSION: NO SUSPICIOUS PULMONARY NODULE. LUNG - RADS Version 1.0 Assessment: Category 1, Negative (No nodules and definitely benign nodules). Management: Continue annual lung screening with LDCT in 12 months. Impression dictated by: Jesus Henson Jr., D.O. 01/31/2025 1:35 PM Dictation Location: [place] [address] Electronically authenticated by: [id number] Date: 01/31/2025 13:35
--- OUTSIDE RECORDS SUMMARY | 2025-01-31 13:10 | XMS_ITS | CCD ---
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 Name Role Phone PHYSICIAN, DEFAULT Unavailable Unavailable PHYSICIAN, DEFAULT Unavailable Unavailable SIL BAIG Unavailable Unavailable JESICA QUACH Attending Unavailable JESICA QUACH Consulting Unavailable JESICA QUACH Admitting Unavailable CHRISTINA, DR MAHESH Paiz Primary Care Unavailable SOUMYA, DR PASTOR Attending Unavailable SOUMYA, DR PASTOR Admitting Unavailable ZICHARLY, DR ERIC Gautam Consulting Unavailable CHRISTINA, DR MAHESH Paiz Primary Care Unavailable SOUMYA, DR PASTOR Consulting Unavailable JESICA QUACH Consulting Unavailable JESICA QUACH Admitting Unavailable REQUEST, NONE LISTED Primary Care Unavaila JESICA Echeverria Attending Unavailable Mahesh Hobson MD Primary Care Provider [phone] JAMAR ZARATE Attending Unavailable DARBY DOOLEY Attending Unavailable Allergies Allergy Classification Reported Allergen(s) Allergy Type Date of Onset Reaction(s) Facility (2 sources) Shellfish Containing Products; Translations: [SHELLFISH CONTAINING PRODUCTS] Drug allergy (disorder) 03-25-2013 AOF [facility] Repository Medications Current Medications Medication [...] disease (9 sources) Atherosclerotic heart disease of q[place]ang[place] coronary artery without angina pectoris; Translations: [Atherosclerotic heart disease of q[place] coronary artery with other forms of angina pectoris] Onset: 04-04-2013 Resolved: 01-21-2024 Chronic Coronary atherosclerosis and other heart disease (4 sources) Presence of coronary angioplasty implant and graft; Translations: [Presence of aortocoronary bypass graft] Onset: 09-22-2024 Episodic Disorders of lipid metabolism (4 sources) Mixed hyperlipidemia; Translations: [Hyperlipidemia] Onset: 04-04-2013 01-11-2024 Chronic Essential hypertension (7 sources) Essential (primary) hypertension; Translations: [Essential hypertension] Onset: 04-04-2013 Chronic Nutritional deficiencies (1 source) Vitamin D deficiency; Translations: [Vitamin D deficiency, unspecified] Onset: 01-11-2024 01-11-2024 Chronic Other lower respiratory disease (3 sources) Multiple nodules of lung; Translations: [Other nonspecific abnormal finding of lung field] Onset: 08-01-2024 08-01-2024 Episodic Peripheral and visceral atherosclerosis (3 sources) Peripheral vascular disease, unspecified; Translations: [Peripheral vascular disease, unspecified] Onset: 07-22-2022 01-11-2024 Chronic Substance-related disorders (3 sources) Nicotine dependence; Translations: [Nicotine dependence, unspecified, uncomplicated] Onset: 01-21-2024 08-01-2024 Chronic Past or Other Problems Problem Classification Problem Date Documented Da te Episodic/Chronic Diabetes mellitus without complication (1 source) Prediabetes; Translations: [Prediabetes] Onset: 01-21-2024 01-21-2024 Episodic Other aftercare (1 source) Long-term current use of drug therapy; Translations: [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] Onset: 01-11-2024 01-11-2024 Episodic Other bone disease and musculoskeletal deformities (1 source) Osteopenia; Translations: [Other specified disorders of bone density and structure, left thigh] Onset: 01-21-2024 01-21-2024 Episodic Results Test Name Value Interpretation Reference Range Facility Office Visiton 09-22-2024 Follow-up visit [id number] Danica Riddle 1950 Date Provider Department Center 09/22/2024 DARBY POWER MAXIME Domínguez Family History Problem Relation Age of Onset Coronary artery disease Mother Diabetes Father Family Status - Relation Status Age at Mother Father Level of Service:96570 DE OFFICE/OUTPATIENT ESTABLISHED LOW MDM 20 MIN Normal [facility] 36on 03-22-2024 36 Regarding echo performed on 03/15/2024: JAY Jordan MA Echo looks pretty good, normal EF/ LV function No siginificant valvular issues. Spoke with patient and made her aware. She verbalized understanding. Normal [facility] Office Visiton 03-01-2024 Follow-up visit [id number] Danica Riddle 1950 F Date Provider Department Center 03/01/2024 120-JAMAR ZARATE Family History Problem Relation Age of Onset Coronary artery disease Mother Diabetes Father Family Status - Relation Status Age at Mother Father Level of Service:87702 DE OFFICE/OUTPATIENT ESTABLISHED MOD MDM 30 MIN Normal [facility] Orders Onlyon 01-15-2024 Orders Only [id number] Danica Riddle 1950 F Date Provider Department Center 01/15/2024 [id number], HISTORICAL CARD [facility] Family History Problem Relation Age of Onset Coronary artery disease Mother Diabetes Father Family Status - Relation Status Age at Mother Father Normal [facility] CBC AUTO DIFFon 07-23-2022 BASO # 0.1 103/ul Normal 0.0-0.1 [facility] Comment on above: Performed By: #### C BC #### [facility] [address] [place] [address] Dr. Geeta Ferrer Basophils/100 WBC (Bld) 1.0 % Normal 0.2-2.0 [facility] Comment on above: Performed By: #### C BC #### [facility] [address] [place] [address] Dr. Geeta Ferrer EO # 0.2 103/ul Normal 0.0-0.7 [facility] Comment on above: Performed By: #### C BC #### [facility] [address] [place] [address] Dr. Geeta Ferrer Eosinophils/100 WBC (Bld) 2.2 % Normal 0.9-7.0 [facility] Comment on above: Performed By: #### C BC #### [facility] [address] [place] [address] Dr. Geeta Ferrer Erythrocyte distribution width (RBC) [Ratio] 14.0 % Normal 11.0-15.0 [facility] Comment on above: Performed By: #### C BC #### [facility] [address] [place] [address] Dr. Geeta Ferrer Hematocrit (Bld) [Volume fraction] 42.8 % Normal 36.0-48.0 [facility] Comment on above: Performed By: #### C BC #### [facility] [address] [place] [address] Dr. Geeta Ferrer Hemoglobin (Bld) [Mass/Vol] 13.8 g/dL Normal 12.0-16.0 [facility] Comment on above: Performed By: #### C BC #### [facility] [address] [place] [address] Dr. Geeta Ferrer IG # 0.03 10e3/ul Normal 0.00-0.03 [facility] Comment on above: Performed By: #### C BC #### [facility] [address] [place] [address] Dr. Geeta Ferrer IG % 0.4 % Normal 0.0-0.5 [facility] Comment on above: Performed By: #### C BC #### [facility] [address] [place] [address] Dr. Geeta Ferrer LYMPH # 1.8 103/ul Normal 1.2-3.8 [facility] Comment on above: Performed By: #### C BC #### [facility] [address] [place] [address] Dr. Geeta Ferrer Lymphocytes/100 WBC (Bld) 24.7 % Normal 20.5-60.0 [facility] Comment on above: Performed By: #### C BC #### [facility] [address] [place] [address] Dr. Geeta Ferrer MANUAL DIFF REQ NO Normal [facility] Comment on above: Performed By: #### C BC #### [facility] [address] [place] [address] Dr. Geeta Ferrer MCH (RBC) [Entitic mass] 30.1 pg Normal 26.7-34.0 [facility] Comment on above: Performed By: #### C BC #### [facility] [address] [place] [address] Dr. Geeta Ferrer MCHC (RBC) [Mass/Vol] 32.2 g/dL Normal 29.9-35.2 [facility] Comment on above: Performed By: #### C BC #### [facility] [address] [place] [address] Dr. Geeta Ferrer MCV (RBC) [Entitic vol] 93.2 fL Normal 81.0-99.0 [facility] Comment on above: Performed By: #### C BC #### [facility] [address] [place] [address] Dr. Geeta Ferrer MONO # 0.6 103/ul Normal 0.3-0.8 [facility] Comment on above: Performed By: #### C BC #### [facility] [address] [place] [address] Dr. Geeta Ferrer Monocytes/100 WBC (Bld) 8.5 % Normal 1.7-12.0 [facility] Comment on above: Performed By: #### C BC #### [facility] [address] [place] [address] Dr. Geeta Ferrer NEUT # 4.6 103/ul Normal 1.4-6.5 [facility] Comment on above: Performed By: #### C BC #### [facility] [address] [place] [address] Dr. Geeta Ferrer Neutrophils/100 WBC (Bld) 63.2 % Normal 43.0-75.0 [facility] Comment on above: Performed By: #### C BC #### [facility] [address] [place] [address] Dr. Geeta Ferrer Platelet mean volume (Bld) [Entitic vol] 12.0 fL Normal 9.5-13.5 [facility] Comment on above: Performed By: #### C BC #### [facility] [address] [place] [address] Dr. Geeta Ferrer PLT 132 103/ul Critically low 150-450 [place] Comment on above: Performed By: #### C BC #### [facility] [address] [place] [address] Dr. Geeta Ferrer RBC 4.59 106/ul Normal 4.20-5.40 [facility] Comment on above: Performed By: #### C BC #### [facility] [address] [place] [address] Dr. Geeta Ferrer WBC 7.3 103/ul Normal 4.0-11.0 [facility] Comment on above: Performed By: #### C BC #### [facility] [address] [address] [address] Geeta Ferrer LIPID PROFILEon 07-23-2022 CHOL-HDL RATIO NORM SEE BELOW Normal [facility] Comment on above: Result Comment: 3.3 - 4.4 LOW RISK 4.4 - 7.1 AVERAGE RISK 7.1 - 11.0 MODERATE RISK >11.0 HIGH RISK Performed By: #### T SH, CMP, LIPID #### [facility] [address] [address] [address] Geeta Ferrer Cholesterol [Mass/Vol] 137 mg/dL Normal <=200 [facility] Comment on above: Performed By: #### T MAYANK CMP, LIPID #### [facility] [address] [address] [address] Geeta Ferrer Cholesterol in HDL [Mass/Vol] 50 mg/dL Normal 40-60 [facility] Comment on above: Performed By: #### T MAYANK, CMP, LIPID #### [facility] [address] [address] [address] Geeta Ferrer Cholesterol in LDL [Mass/Vol] 67.6 mg/dL Normal [facility] Comment on above: Performed By: #### T MAYANK, CMP, LIPID #### [facility] [address] [address] [address] Geeta Ferrer Cholesterol.total/ Cholesterol in HDL [Mass ratio] 2.7 {ratio} Normal [facility] Comment on above: Performed By: #### T MAYANK, CMP, LIPID #### [facility] [address] [address] [address] Geeta Ferrer HDL NORMAL > or = 60 mg/dl - LO W CARDIOVASCULAR RISK <40 mg/dl - HIGH CARDIOVASCULAR RISK Normal [facility] Comment on above: Performed By: #### T SH, CMP, LIPID #### [facility] [address] [place] [address] Dr. Geeta Ferrer LDL CALC NORMAL SEE BELOW Normal [facility] Comment on above: Result Comment: <100 mg/dl OPTIMAL 100 - 129 mg/dl NEAR OR ABOVE OPTIMAL 130 - 159 mg/dl BORDERLINE HIGH 160 - 189 mg/dl HIGH >190 mg/dl VERY HIGH Performed By: #### T SH, CMP, LIPID #### [facility] [address] [address] [address] Geeta Ferrer Triglyceride [Mass/Vol] 97 mg/dL Normal <=150 [facility] Comment on above: Performed By: #### T SH, CMP, LIPID #### [facility] [address] [address] [address] Geeta Ferrer VLDL CALC 19.4 mg/dL Normal [facility] Comment on above: Performed By: #### T SH, CMP, LIPID #### [facility] [address] [place] [address] Dr. Geeta Ferrer PROF 14(COMP METB)on 022 Albumin [Mass/Vol] 4.1 g/dL Normal 3.4-5.0 [facility] Comment on above: Performed By: #### T SH, CMP, LIPID #### [facility] [address] [place] [address] Dr. Geeta Ferrer Albumin/Globulin [Mass ratio] 1.3 {ratio} Normal [facility] Comment on above: Performed By: #### T SH, CMP, LIPID #### [facility] [address] [place] [address] Dr. Geeta Ferrer ALP [Catalytic activity/Vol] 76 U/L Normal 46-116 [facility] Comment on above: Performed By: #### T SH, CMP, LIPID #### [facility] [address] [place] [address] Dr. Geeta Ferrer ALT [Catalytic activity/Vol] 19 U/L Normal 14-59 [facility] Comment on above: Performed By: #### T SH, CMP, LIPID #### [facility] [address] [place] [address] Dr. Geeta Ferrer Anion gap [Moles/Vol] 14.5 mmol/L Normal [facility] Comment on above: Performed By: #### T SH, CMP, LIPID #### [facility] [address] [place] [address] Dr. Geeta Ferrer AST [Catalytic activity/Vol] 14 U/L Critically low 15-37 [facility] Comment on above: Performed By: #### T SH, CMP, LIPID #### [facility] [address] [place] [address] Dr. Geeta Ferrer Bilirubin [Mass/Vol] 0.4 mg/dL Normal 0.2-1.0 [facility] Comment on above: Performed By: #### T SH, CMP, LIPID #### [facility] [address] [place] [address] Dr. Geeta Ferrer Calcium [Mass/Vol] 9.5 mg/dL Normal 8.5-10.1 [facility] Comment on above: Performed By: #### T SH, CMP, LIPID #### [facility] [address] [place] [address] Dr. Geeta Ferrer Chloride [Moles/Vol] 105 mmol/L Normal 98-107 [facility] Comment on above: Performed By: #### T SH, CMP, LIPID #### [facility] [address] [place] [address] Dr. Geeta Ferrer CO2 [Moles/Vol] 25.9 mmol/L Normal 21.0-32.0 The [facility] Comment on above: Performed By: #### T SH, CMP, LIPID #### [facility] [address] [place] [address] Dr. Geeta Ferrer Creatinine [Mass/Vol] 0.91 mg/dL Normal 0.55-1.02 [facility] Comment on above: Performed By: #### T SH, CMP, LIPID #### [facility] [address] [place] [address] Dr. Geeta Ferrer EGFR-AF LUXEMBOURGER >60 Normal >=60 [facility] Comment on above: Performed By: #### T SH, CMP, LIPID #### [facility] [address] [place] [address] Dr. Geeta Ferrer EGFR-NON AF LUXEMBOURGER >60 Normal >=60 [facility] Comment on above: Performed By: #### T SH, CMP, LIPID #### [facility] [address] [place] [address] Dr. Geeta Ferrer Globulin (S) [Mass/Vol] 3.1 g/dL Normal [facility] Comment on above: Performed By: #### T MAYANK CMP, LIPID #### [facility] [address] [place] [address] Dr. Geeta Ferrer Glucose [Mass/Vol] 113 mg/dL Critically high 74-106 [facility] Comment on above: Performed By: #### T MAYANK CMP, LIPID #### [facility] [address] [place] [address] Dr. Geeta Ferrer Potassium [Moles/Vol] 4.4 mmol/L Normal 3.5-5.1 [facility] Comment on above: Performed By: #### T MAYANK CMP, LIPID #### [facility] [address] [place] [address] Dr. Geeta Ferrer Protein [Mass/Vol] 7.2 g/dL Normal 6.4-8.2 The [facility] Comment on above: Performed By: #### T MAYANK CMP, LIPID #### [facility] [address] [place] [address] Dr. Geeta Ferrer Sodium [Moles/Vol] 141 mmol/L Normal 136-145 [facility] Comment on above: Performed By: #### T MAYANK CMP, LIPID #### [facility] [address] [place] [address] Dr. Geeta Ferrer Urea nitrogen [Mass/Vol] 14.0 mg/dL Normal 7.0-18.0 [facility] Comment on above: Performed By: #### T MAYANK CMP, LIPID #### [facility] [address] [place] [address] Dr. Geeta Ferrer Urea nitrogen/Creatinin e [Mass ratio] 15.4 mg/mg Normal [facility] Comment on above: Performed By: #### T MAYANK CMP, LIPID #### [facility] [address] [place] [address] Dr. Geeta Ferrer TSHon 07-23-2022 TSH 2.938 uIU/mL Normal 0.358-3.740 [facility] Comment on above: Performed By: #### T SH, CMP, LIPID #### [facility] [address] [address] [address] Geeta Ferrer NM STRESS/REST MULTIon 03-10 NM STRESS/REST MULTI Patient: TRESSA RIDDLE Exam Date: 03/10/2022 : 1950 Gender:F Ordering : DR DARBY DOOLEY M.D. Admission #: [id number] Family : Order #: [id number] CLICK HERE TO VIEW EXAM RADIOLOGY REPORT [...] M.D. on 03/10/2022 at 13:49 Normal [facility] PROF CHEM 8 (BAS METB)on Anion gap [Moles/Vol] 8.8 mmol/L Normal [facility] Comment on above: Performed By: #### B MP #### [facility] [address] [address] [address] Geeta Ferrer Calcium [Mass/Vol] 9.7 mg/dL Normal 8.5-10.1 The [facility] Comment on above: Performed By: #### B MP #### [facility] [address] [address] [address] Geeta Ferrer Chloride [Moles/Vol] 107 mmol/L Normal 98-107 [facility] Comment on above: Performed By: #### B MP #### [facility] [address] [address] [address] Geeta Ferrer CO2 [Moles/Vol] 29.0 mmol/L Normal 21.0-32.0 [facility] Comment on above: Performed By: #### B MP #### [facility] [address] [address] [address] Geeta Ferrer Creatinine [Mass/Vol] 0.99 mg/dL Normal 0.55-1.02 [facility] Comment on above: Performed By: #### B MP #### [facility] [address] [address] [address] Geeta Ferrer EGFR-AF LUXEMBOURGER >=60 Normal >=60 [facility] Comment on above: Performed By: #### B MP #### [facility] [address] [address] [address] Geeta Ferrer EGFR-NON AF LUXEMBOURGER 55 mL/min/1.73m2 Critically low >=60 [facility] Comment on above: Performed By: #### B MP #### [facility] [address] [address] [address] Geeta Ferrer Glucose [Mass/Vol] 100 mg/dL Normal 74-106 The [facility] Comment on above: Performed By: #### B MP #### [facility] [address] [address] [address] Geeta Ferrer Potassium [Moles/Vol] 4.8 mmol/L Normal 3.5-5.1 [facility] Comment on above: Performed By: #### B MP #### [facility] [address] [address] [address] Geeta Ferrer Sodium [Moles/Vol] 140 mmol/L Normal 136-145 The [facility] Comment on above: Performed By: #### B MP #### [facility] [address] [address] [address] Geeta Ferrer Urea nitrogen [Mass/Vol] 19.0 mg/dL Critically high 7.0-18.0 [facility] Comment on above: Performed By: #### B MP #### [facility] [address] [address] [address] Geeta Ferrer Urea nitrogen/Creatinin e [Mass ratio] 19.2 mg/mg Normal [facility] Comment on above: Performed By: #### B MP #### [facility] [address] [address] [address] Geeta Ferrer Encounters Encounter Date Encounter Type Care Provider Facility Start: 09-22-2024 End: 09-22-2024 ambulatory [facility] Start: 08-01-2024 End: 08-01-2024 Orders Only Mahesh Hobson MD Work Phone: [facility] Comment on above: Lung nodules (Primar y Dx); Nicotine dependence with current use Start: 03-01-2024 End: 03-01-2024 ambulatory JAMAR ELLIOT [facility] Start: 07-26-2022 Encounter for genera l adult medical examination without abnormal findings JESICA QUACH [facility] Start: 07-23-2022 End: 07-24-2022 ambulatory JESICA QUACH Facility:[facility] Start: 07-23-2022 End: 07-24-2022 Encounter for general adult medical examination without abnormal findings JESICA QUACH Facility:[facility] Start: 03-10-2022 End: 03-11-[address] DARBY DOOLEY Facility:[facility] Start: 02-17-2022 End: 02-18-2022 ambulatory JESICA QUACH Facility:[facility] Start: 07-06-2018 End: 07-07-2018 Patient encounter procedure DEFAULT PHYSICIAN Facility:[facility] Procedures Date Procedure Procedure Detail Performing Clinician Start: 12-26-2015 Colonoscopy Mahesh rodriguez MD Work Phone: Plan of Treatment Date Care Activity Detail Author Start: 12-25-2025 Screening for malign ant neoplasm of colon [facility] Start: 01-23-2025 Screening for malign ant neoplasm of breast Mammogram [facility] Comment on above: Postponed from 05/10 (Patient Refused) Start: 08-01-2024 End: 08-01-2025 CT Chest for screening WO contrast CT lung screening low dose Imaging Routine Lung nodules Nicotine dependence with current use Expected: 08/01/2024, Expires: 08/01/2025 [facility] Work Phone: Comment on above: Expected: 08/01/2024 , Expires: 08/01/2025 Start: 04-24-2024 Influenza vaccination Influenza Vacc ine (#1) [facility] Start: 1956 Pneumococcal Vaccine : 65+ Years (1 of 2 - PCV) Pneumococcal Vaccine: 65+ Years (1 of 2 - PCV) [facility] Start: 1950 Medicare Annual Wellness (AWV) Medicare Annual Wellness (AWV) [facility] Start: 1950 Screening for malign ant neoplasm of colon [facility] Immunizations Immunization Date Immunization Notes Care Provider Fa cility 06-11-2023 influenza virus vacc ine, unspecified formulation Mahesh Hobson MD Work Phone: [facility] Payers Date Payer Category Payer Medicare [id number] 2023 Private Health Insurance CLI [id number] 2022 Private Health Insurance EULALIA polanco [id number] 2015 Medicare MEDICARE [id number] 1959 Medicare [id number] 1959 Unknown [id number] 1950 Unknown [id number] 1950 Unknown [id number] 1950 Unknown [id number] 1950 Unknown [id number] Unknown Social History Date Type Detail Facility Start: 08-24-1967 Tobacco smoking stat [facility] Smokes tobacco daily [facility] Start: 08-24-1967 History of tobacco use Cigarette Smo ker [facility] Start: 01-21-2024 Cigarettes smoked cu rrent (pack per day) - Reported 1 [facility] Start: 01-21-2024 Tobacco use and exposure Smoke less tobacco non-user [facility] Start: 01-21-2024 Tobacco use panel [facility] Start: 1950 Sex assigned at Not on file [facility] Clinical Notes 03-10-2022 to 09-22-2024 Mahesh Hobson MD - 08/01/2024 12:25 PM EST Note Date & Type Note Facility 09-22-2024 Note [place] [facility] - [facility] Subjective Tressa Riddle is a 74 y.o. year old female patient being seen for 6 mo follow up CAD, PAD, and hypertension. Had echo in February 2024 after last apt. She had Covid-19 a few weeks ago and is feeling much better. Denies chest pain, SOB, and palpitations. Does have some LE cramping with ambulation. Patient Active Problem List Diagnosis Acute ill-defined cerebrovascular disease Palpitations Ischemic heart disease Essential hypertension Hyperlipidemia Dyspnea Coronary atherosclerosis Chronic obstructive lung disease ([facility]) Chest pain PAD (peripheral artery disease) ([facility]) CKD stage 3a, GFR 45-59 ml/min ([facility]) Encounter for long-term current use of medication Nicotine dependence with current use Osteopenia of left hip Prediabetes Vitamin D deficiency Heart failure with mildly reduced ejection fraction ([facility]) Lung nodules Family History Problem Relation Name Age of Onset Coronary artery disease Mother Diabetes Father Social History Tobacco Use Smoking status: Every Day Current packs/day: 1.00 Types: Cigarettes Smokeless tobacco: Never Substance Use Topics Alcohol use: Not Currently HPI Tressa is seen in follow up. She is a 74-year-old lady with history of CAD with NSTEMI [...] Today she is seen in follow-up. She had covid-19 2 weeks ago. She is recovering. She reports that she has otherwise been doing very well. She denies symptoms of chest pain, shortness of breath, and palpitation. She has no leg swelling. No syncope. She reports that if she walks long distances she has mild cramps in the legs. Otherwise no symptoms with usual activities. Review of Systems Musculoskeletal: Positive for muscle cramps. All other systems reviewed and are negative. Objective Visit Vitals BP 122/68 (BP Location: Left arm, Patient Position: Sitting) Pulse 53 Ht 1.6 m (5' 3 ) Wt 59.9 kg (132 lb) SpO2 91% BMI 23.38 kg/m??? Smoking Status Every Day BSA 1.63 m??? Physical Exam Constitutional: Appearance: She is well-developed. She is not ill-appearing. HENT: Head: Normocephalic and atraumatic. Nose: Nose normal. Eyes: General: No scleral icterus. Pupils: Pupils are equal, round, and reactive to light. Neck: Thyroid: No thyromegaly. Vascular: No JVD. Cardiovascular: Rate and Rhythm: Regular rhythm. Bradycardia present. Pulses: Radial pulses are 2+ on the [...] (120 mg) by mouth once daily as directed., Disp: 90 tablet, Rfl: 3 lisinopril 40 mg tablet, Take 1 tablet (40 mg) by mouth in the morning., Disp: 90 tablet, Rfl: 3 metoprolol tartrate (Lopressor) 50 mg tablet, Take 1 tablet (50 mg) by mouth in the morning and at bedtime., Disp: 180 tablet, Rfl: 3 Recent Labs No visits with results (more content not included)... [facility] 08-01-2024 History of Present illness Narrative Patient needs repeat CT chest to monitor nodules. Please fax order to Kathrine. documented in this encounter [facility] 03-01-2024 Note Previous EF in 2012 was 40-45% Repeat echocardiogram to assess cardiac function, LVSF, valvular function [facility] 03-01-2024 Note Coronary artery dise ase is unchanged. Continue current medications. Cardiac status will be reassessed in 6 months. Continue GDMT- ASA, lipitor, metoprolol, imdur and lisinopril [facility] 03-01-2024 Note Hypertension is unch anged. Continue current treatment regimen. Blood pressure will be reassessed at the next regular appointment. [facility] 03-01-2024 Note Continue statin [facility] 03-01-2024 Note No acute concerning symptoms, continue ASA, lipitor [facility] 03-01-2024 Note [facility] CARDIOLOGY PROGR [...] In March 2013 was admitted to the [facility] with a non-ST segment elevation [...] Behavior: Behavior normal. (more content not included)... [facility] 03-01-2024 Note Patient here for 6 m o follow up CAD, PAD, hypertension, and hyperlipidemia. Had routine labs with lipid in December 2023. She denies chest pain, SOB, palpitations, and lightheadedness/syncope. Doing very well. Review of Systems All other systems reviewed and are negative. [facility] 03-10-2022 Note CARDIAC STRESS TEST Requesting Physician: Procedure Date:03/10/2022 Lexiscan Stress Test with myocardial perfusion imaging performed at the [facility]. Informed consent was obtained. An intravenous line [...] Myocardial perfusion images will be reported separately. [facility] Signed and Approved by: DR DARBY DOOLEY 03/24/2022 17:31:00 [facility] Evaluation note Diagnosis Essential hypertension ([facility])- Primary Unspecified essential hypertension Chronic obstructive pulmonary disease, unspecified COPD type ([facility]) PAD (peripheral artery disease) ([facility]) Unspecified peripheral vascular disease Prediabetes Other abnormal glucose CKD stage 3a, GFR 45-59 ml/min ([facility]) CAD in [place] artery ([facility]) Nicotine dependence with current use Cigarette nicotine [...] and content) DATE CREATED AUTHOR 08/02/2018 [facility] DATE CREATED AUTHOR AUTHOR'S ORGANIZ ATION 07/26/2022 [facility] DATE CREATED AUTHOR AUTHOR'S ORGANIZ ATION 09/24/2024 [facility] Care Teams (unrecognized sec tion and content) 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 [employer] [facility]. provides no warranty or guarantee of the accuracy or completeness of information in this document.
== END 2025-01-31 12:44 | disposition home or self-care (01) ==
PROVIDERS: PCP Family Medicine; Visit Provider Family Medicine
DX: F17.210 Nicotine dependence, cigarettes, uncomplicated (principal)
CPT/HCPCS: 71271